=== PATIENT | male | born 1960 | race Caucasian/White ===

== ENCOUNTER 2018-07-05 16:07 | Emergency (ER) | payer OTHER, SELFPAY ==
[2018-07-05 16:09] VITALS: BP 125/74; PULSE 103; RESP 19; TEMP 36.8; O2SAT 97; BMI 27.0
--- NOTE | 2018-07-05 16:22 | ED.VISSUMM ---
- ER Visit Summary Date of Service: 07/05/18 Chief Complaint: Right leg pain History of Present Illness: The patient is a 58 M presenting with right leg pain. Patient states this started yesterday. He noticed pain and redness to the medial aspect of his right thigh. He was concerned about possibility of blood clot. He called his pocket operator and was advised him to come to the ED. He states he has right lower rib pain. He states this has been persistent for the past 2 years after having pneumonia. He states this is no different than usual. He denies shortness of breath or chest pain. He denies injury. Denies fever. Denies other complaints. Physical Examination: Vitals are stable. Patient is afebrile. Alert no acute distress. HEENT exam is unremarkable. Neck is supple. Lungs are clear and equal bilaterally. Chest wall is nontender Heart is regular rate and rhythm. Abdomen is soft nontender nondistended. No guarding or rebound Extremities right medial thigh tenderness, active full range of motion. Normal distal pulses Skin is warm and dry. No focal neurologic deficit. Remainder of exam is unremarkable. Emergency Department Course and Treatment: Right rib series shows COPD, no acute process. CBC, chemistries unremarkable. Liver lipase are normal. Ultrasound right lower extremity shows superficial thrombophlebitis with no evidence of DVT. Patient is advised to follow-up with primary care physician. Advised return to ED for any worsening complaints. Disposition: Discharge home Impression: Right lower extremity superficial thrombophlebitis; chronic right rib pain This note was generated with [employer] dictation software. It may contain incorrect words, spelling, and punctuation that were not noted in review of the chart prior to signing ED Disposition - Plan for ED Patient: Chief Complaint: Lower Extremity Injury Instructions: ED Phlebitis Superficial Referrals: Naresh Gamino MD [Primary Care Provider] -
--- NOTE | 2018-07-05 16:25 | ED.DCSUM_ITS ---
- ER Visit Summary Date of Service: 07/05/18 Chief Complaint: Right leg pain History of Present Illness: The patient is a 58 M presenting with right leg pain. Patient states this started yesterday. He noticed pain and redness to the medial aspect of his right thigh. He was concerned about possibility of blood clot. He called his toe puncher and was advised him to come to the ED. He states he has right lower rib pain. He states this has been persistent for the past 2 years after having pneumonia. He states this is no different than usual. He denies shortness of breath or chest pain. He denies injury. Denies fever. Denies other complaints. Physical Examination: Vitals are stable. Patient is afebrile. Alert no acute distress. HEENT exam is unremarkable. Neck is supple. Lungs are clear and equal bilaterally. Chest wall is nontender Heart is regular rate and rhythm. Abdomen is soft nontender nondistended. No guarding or rebound Extremities right medial thigh tenderness, active full range of motion. Normal distal pulses Skin is warm and dry. No focal neurologic deficit. Remainder of exam is unremarkable. Emergency Department Course and Treatment: Right rib series shows COPD, no acute process. CBC, chemistries unremarkable. Liver lipase are normal. Ultrasound right lower extremity shows superficial thrombophlebitis with no evidence of DVT. Patient is advised to follow-up with primary care physician. Advised return to ED for any worsening complaints. Disposition: Discharge home Impression: Right lower extremity superficial thrombophlebitis; chronic right rib pain This note was generated with [employer] dictation software. It may contain incorrect words, spelling, and punctuation that were not noted in review of the chart prior to signing ED Disposition - Plan for ED Patient: Chief Complaint: Lower Extremity Injury Instructions: ED Phlebitis Superficial Referrals: Naresh Gamino MD [Primary Care Provider] -
--- NOTE | 2018-07-05 16:40 | RAD_ITS ---
STUDY: X-RAY - UNILATERAL RIBS ( RIGHT ) WITH CHEST REASON FOR EXAM: Male, 58 years old. Right-sided chest pain. TECHNIQUE - RIBS: 4 view(s) of the ribs. TECHNIQUE - CHEST: Single frontal view of the chest. COMPARISON: 01/13/2016. FINDINGS - RIBS: Normal visualized ribs without a demonstrated fracture. FINDINGS - CHEST: The lungs are hyperexpanded. There are coarsened interstitial markings suggestive of mild chronic fibrosis. No gross focal infiltrates. No gross effusions. Normal size heart. Normal mediastinum and kavita. There is prominence of the pulmonary hilar arteries without peripheral pulmonary vascular congestion, suggesting pulmonary hypertension. Normal visualized aortic arch and descending thoracic aorta. Normal visualized thoracic spine. Normal visualized ribs, clavicles, and shoulders. There is no demonstrated abnormality of the visualized soft tissue structures of the upper abdomen. RAD/Ribs Uni Min 3V w/PA Chest IMPRESSION: RIBS: Normal x-ray examination of the ribs. CHEST: No acute chest disease. There are findings consistent with COPD. There is no evidence of acute chest disease. Electronically Signed: Gurvinder Dumont MD at 17:02 EST , Service support ,
[2018-07-05 16:53] LABS: Absolute Lymphocyte Count 2.78 X10^3/ul (0.83-4.51); Absolute Neutrophil Count 4.8 X10^3/uL (2.0-7.7); Basophil# 0.04 X10^3/uL; Basophil% 0.5 % (0-1); Eosinophil# 0.21 X10^3/uL; Eosinophils% 2.4 % (0-5); Hematocrit 46.2 % (40-54); Lymphocyte # 2.78 X10^3/ul (4.0); Lymphocyte % 32.2 % (19-41); Mean Corp Hgb Conc 32.5 g/gl (32-36); Mean Corpuscular Hgb 30.4 pg (27.0-32.0); Mean Corpuscular Volume 93.7 fL (80-94); Monocyte# 0.77 X10^3/uL; Monocyte% 8.9 % (0-10); Neutrophil # 4.83 X10^3/uL (2.7-7.7); Platelet Count 213 K/mm3 (150-450); RBC Distribution Width CV 14.1 % (11.6-14.6); RBC Distribution Width SD 48.1 fl (35.1-43.9); Red Blood Count 4.93 M/mm3 (4.6-6.2); White Blood Count 8.6 K/mm3 (4.4-11.0)
[2018-07-05 17:00] LABS: ALB/GLOB Ratio 0.9 RATIO (0.9-2.4); AST(SGOT) 9 U/L (15-37); Alanine Aminotransfer ALT/SGPT 13 U/L (16-61); Albumin, Serum 3.4 g/dL (3.2-5.0); Alkaline Phosphatase 85 U/L (45-117); Anion Gap 6 (5-15); BUN 18 mg/dL (7-18); BUN/Creat Ratio 15.9 RATIO (10-20); Calcium,Total 8.4 mg/dL (8.5-10.1); Chloride 112 mmol/L (98-107); Creatinine, Serum 1.13 mg/dL (0.70-1.30); EST Glomerular Filtration Rate 71 mL/min (>60); Est Glom Filt Rate - Afr Amer 85 mL/min (>60); Estimated Creatinine Clearance 74.97 ml/min; Globulin 3.8 g/dL (2.2-4.2); Glucose 78 mg/dL (74-106); Lipase 261 U/L (73-393); Protein, Total 7.2 g/dL (6.4-8.2); Sodium Level 145 mmol/L (136-145)
[2018-07-05 17:01] LABS: POSITIVE COUNT NO; POSITIVE DIFFERENTIAL NO; POSITIVE MORPHOLOGY NO
--- NOTE | 2018-07-05 17:13 | US_ITS ---
STUDY: VENOUS DOPPLER ULTRASOUND - RIGHT LOWER EXTREMITY REASON FOR EXAM: Male, 58 years old. Medial distal thigh area of redness and pain TECHNIQUE: Ultrasound evaluation of the deep vein system to include rosa-scale imaging and compression was performed. Rosa-scale imaging and Doppler sonographic evaluation, including duplex spectral analysis and qualitative color flow sonography, was performed. COMPARISON: None. FINDINGS: Common Femoral Vein: Normal compression, spontaneity and augmentation. Normal color Doppler. Femoral Proximal: Normal compression, Normal color Doppler. Femoral Middle: Normal compression, spontaneity and augmentation. Normal color Doppler. Femoral Distal: Normal compression. Normal color Doppler. Popliteal Vein: Normal compression, Normal color Doppler. Posterior Tibial Vein: Normal compression, Normal color Doppler. Peroneal Vein: Normal compression, Normal color Doppler. In the region of interest there is no visualized focal thrombosis of superficial varicosities or varicose veins. US/Venous Duplex Imag/Limited/Uni IMPRESSION: Normal venous Doppler ultrasound of the lower extremity. In the region of concern, Thrombosis of superficial varicosities given history of redness swelling consider thrombophlebitis. Electronically Signed: Fátima Cevallos MD at 18:37 EST Tel , Service support ,
--- NOTE | 2018-07-05 17:38 | ED.DEP ---
ED Disposition - Plan for ED Patient: Chief Complaint: Lower Extremity Injury Instructions: ED Phlebitis Superficial Referrals: Naresh Gamino MD [Primary Care Provider] -
[2018-07-05 17:52] VITALS: BP 124/67; PULSE 71; RESP 15; O2SAT 98
== END 2018-07-05 17:54 | disposition home or self-care (01) ==
LOC: ED 17:20
PROVIDERS: Emergency Provider Emergency Medicine; Family Provider Family Medicine; PCP Family Medicine
DX: I80.01 Phlebitis and thrombophlebitis of superficial vessels of right lower extremity (principal); R07.81 Pleurodynia; J44.9 Chronic obstructive pulmonary disease, unspecified; I50.9 Heart failure, unspecified; Z72.0 Tobacco use
CPT/HCPCS: 71101; 80053; 83690; 85025; 93971; 99283

== ENCOUNTER 2021-09-27 05:49 | Emergency (ER) | payer OTHER, MEDICAID, SELFPAY ==
[2021-09-27] VITALS (8 sets, daily range): BP systolic 96–107; BP diastolic 65–81; PULSE 89–99; RESP 13–26; TEMP 36.5; O2SAT 94–98; BMI 25.7
--- NOTE | 2021-09-27 05:55 | RAD_ITS ---
EXAM: XR CHEST, 1 VIEW CLINICAL INDICATION: chest pain chest pain TECHNIQUE: Frontal view of the chest. This report was created using [employer] report generation technology. COMPARISON: 07/05/2018. FINDINGS: LUNGS AND PLEURAL SPACES: There is increased interstitial prominence in the lungs, which may represent CHF. There is mild left basilar atelectasis. There is no demonstrated focal pulmonary infiltrate. No pneumothorax. No effusion. HEART: The heart is enlarged. MEDIASTINUM: Central airways and mediastinal contour are unremarkable. BONES/JOINTS: There are multilevel degenerative changes in the thoracic spine. SOFT TISSUES: Unremarkable. RAD/Chest 1 View (Portable) IMPRESSION: Cardiomegaly with suggestion of mild CHF. Electronically Signed: Sergio Bowie MD at 6:37 EST Reading Location ID and State: [facility] / [place] , Service support ,
--- NOTE | 2021-09-27 05:55 | EKG12_ITS ---
Test Reason : SOB Blood Pressure : / mmHG Vent. Rate : 091 BPM Atrial Rate : 091 BPM P-R Int : 134 ms QRS Dur : 160 ms QT Int : 436 ms P-R-T Axes : 071 045 108 degrees QTc Int : 536 ms Normal sinus rhythm Left bundle branch block Abnormal ECG Confirmed by NILSA IBARRA, MIGUEL ([id number]), editor farm journal BOB LANDEROS ([id number]) on 09/29/2021 1:29:05 PM Referred By: ELVIA Confirmed By:MIGUEL ASH MD
[2021-09-27] MEDS: Aspirin 81 MG TAB.CHEW 324 MG PO (06:01)
[2021-09-27 06:05] LABS: Absolute Lymphocyte Count 2.98 X10^3/uL (0.83-4.51); Absolute Neutrophil Count 5.3 X10^3/uL (2.0-7.7); Basophil# 0.07 X10^3/uL; Basophil% 0.8 % (0-1); Eosinophil# 0.25 X10^3/uL; Eosinophils% 2.7 % (0-5); Hematocrit 47.3 % (40-54); Hemoglobin 15.8 g/dL (13.0-16.5); Lymphocyte # 2.98 X10^3/ul (0.83-4.51); Lymphocyte % 32.3 % (19-41); Mean Corp Hgb Conc 33.4 g/dL (32-36); Mean Corpuscular Hgb 31.4 pg (27.0-32.0); Mean Platelet Vol. 9.5 fl (6.2-12.0); Monocyte# 0.65 X10^3/uL; NRBC Flagged by Analyzer 0 % (0-5); Neutrophil # 5.25 X10^3/uL (2.7-7.7); Neutrophil % 56.9 % (47-70); Platelet Count 245 K/mm3 (150-450); RBC Distribution Width SD 48.5 fl (35.1-43.9); Red Blood Count 5.03 M/mm3 (4.6-6.2); White Blood Count 9.2 K/mm3 (4.4-11.0)
--- NOTE | 2021-09-27 06:20 | ED.VIS.DYS ---
HPI History of Present Illness Chief Complaint: Shortness of Breath Narrative Narrative: 61-year-old male with history of COPD, CAD, PAD, tobacco abuse presenting with shortness of breath. He states it woke him up from sleep and he felt like his chest was tight and he could not catch his breath. Patient walked into the kitchen and then called for his . Patient transported by EMS and did not receive any breathing treatments or steroids. He states he did not have any chest pain but he does describe a tightness across his chest which lasted for multiple minutes today. He states he started to panic and to get sweaty because he felt like he could not breathe. He states he does have a history of anxiety and he was getting concerned that he was unable to catch his breath. He states he had a similar episode of this about a week ago which lasted about 25 minutes. Has not had a fever, chills. He has been eating and drinking normally. Is making normal urine and stool. [facility] Medical History Atherosclerotic heart disease of [place] coronary artery without angina pectoris Cardiomyopathy Congestive heart failure with LV diastolic dysfunction, NYHA class 1 COPD (chronic obstructive pulmonary disease) Hypersomnia PAD (peripheral artery disease) Panic attack Pneumonia Pulmonary HTN Scoliosis Tobacco abuse Wheezing Home Medications sertraline 200 mg PO DAILY 01/13/16 [History Last Taken Unknown] albuterol sulfate [Ventolin HFA] 1 - 2 puff INHALATION Q4H PRN PRN #8.5 g 09/27/21 [Rx Last Taken Unknown] prednisone 50 mg PO DAILY #5 tab 09/27/21 [Rx Last Taken Unknown] Allergy/AdvReac Type Severity Reaction Status Date / Time No Known Allergies Allergy Verified 09/27/21 05:50 Family History Father Emphysema of lung Mother Heart disease Myocardial infarction Social History Smoking Status: Current every day smoker tobacco type: cigarettes ROS ROS ED Constitutional Constitutional ED: Reports sweats; Denies chills or fever(s) Eyes Eyes: Denies blurry vision or diplopia ENT ENT ED: Denies rhinorrhea or sore throat Cardiovascular Cardiovascular: Reports racing heartbeat; Denies chest pain Respiratory/Chest Respiratory/Chest: Reports cough and dyspnea Gastrointestinal Gastrointestinal: Denies abdominal pain, nausea or vomiting Genitourinary Genitourinary ED: Denies dysuria or hematuria Musculoskeletal Musculoskeletal: Denies arthralgias or myalgias Neurologic Neurologic: Denies headache(s) or weakness Psychiatric Psychiatric: Reports anxiety; Denies depression EXAM Physical Exam Const Vital Signs: 09/27/21 05:51 09/27/21 05:56 09/27/21 05:57 Temperature 97.7 F L Temperature Source Oral Pulse Rate 99 Respiratory Rate 26 H Respiratory Effort Short of Breath Respiratory Depth Normal Respiratory Pattern Tachypnea Blood Pressure 104/77 Blood Pressure Mean 86 Pulse Ox 98 98 Oxygen Delivery Method Room Air Room Air Room Air Oxygen Flow Rate (L/min) 09/27/21 06:25 09/27/21 07:06 09/27/21 07:52 Temperature Temperature Source Pulse Rate 94 89 Respiratory Rate 13 19 H Respiratory Effort Respiratory Depth Respiratory Pattern Normal Blood Pressure 96/65 Blood Pressure Mean 75 Pulse Ox 97 Oxygen Delivery Method Nasal Cannula Oxygen Flow Rate (L/min) 4 Positive well nourished General Appearance ED: NAD; Negative for pallor HEENT Reports dry mucous membranes atraumatic Mouth ED: Yes dry mucous membranes Mouth: dry mucous membranes Eyes PERRL and EOMs intact bilaterally Resp Auscultation: wheezes expiratory wheezes Cardio regular rate and regular rhythm Neuro oriented x3 and CN's II-XII intact bilaterally Sensorium / Orientation: alert Motor Exam: strength 5/5 throughout Skin General Skin Exam: Negative for jaundice or pallor Lesions: no lesions Rashes: no rashes MDM MDM MDM Narrative Medical decision making narrative: 61-year-old male with CAD, cardiomyopathy, pulmonary hypertension, CHF presenting with tightness across his chest and diaphoresis which is happened twice in the last week. He describes the first episode as lasting about 20 to 25 minutes. He states he woke up and became diaphoretic and could not breathe and felt tightness across his chest and could not catch his breath. This eventually resolved after about 20 to 25 minutes and he had a return of this this morning which is very similar. Patient does have a history of anxiety in the past but states he has not had to take any Ativan in a long time. He states he does not feel anxious unless he is having difficulty breathing. He also has a history of COPD and was wheezing on arrival and was given Solu-Medrol 125 mg and aerosols and he has improved. Initially he was on 4 L nasal cannula but has been able to come off of the oxygen. I personally ambulated him at the bedside for 30 seconds with a pulse ox and he maintained a pulse ox of 96% and felt okay. When he sat down his pulse ox went down to 94 and then jumped right back up to 96. His EKG shows a new left bundle branch block with a ventricular rate of 91 bpm with the last comparison being to his last EKG from December 2015. His CBC is unremarkable. Renal function and electrolytes are normal. Initial high-sensitivity troponin is 30. His chest x-ray is interpreted by myself shows cardiomegaly with a mild degree of pulmonary vascular congestion. The radiologist does agree. Patient was ordered for a Lasix. A BNP was added and is pending. Patient was ordered 40 mg of Lasix IV. Discussed with the patient at length that I felt that he should stay for cardiac evaluation especially because he has risk factors and he has been lost to follow-up. I spoke with Dr. Nickerson who came and personally talked with the patient as well and recommended admission however the patient is still declining to stay in the hospital. For this reason I will sign him out AMA. He acknowledges that he has severe injuries, disability, . This was discussed in front of his as well. She expresses her concern about him not staying. Second high-sensitivity troponin is pending. He will stay for the second troponin and if this is abnormal he will revisit whether he wants to stay or not. I did add a BNP and if this is not elevated Dr. Nickerson but does not recommend Lasix for home. If it is elevated will start him on Lasix. If his troponin does not change significantly he wishes to go home. I did write prescriptions for prednisone and albuterol inhaler in case he does get discharged home. Impression: 1. Chest pain 2. COPD exacerbation 3. CHF Lab Data Attestation: I reviewed the patient's lab results. Labs: Laboratory Results - last 24 hr 09/27/21 09/27/21 06:00 06:00 WBC 9.2 RBC 5.03 Hgb 15.8 Hct 47.3 MCV 94.0 MCH 31.4 MCHC 33.4 RDW Std Deviation 48.5 H RDW Coeff of Jefry 14.0 Plt Count 245 MPV 9.5 Immature Gran % (Auto) 0.300 Neut % (Auto) 56.9 Lymph % (Auto) 32.3 [place] % (Auto) 7.0 Eos % (Auto) 2.7 Baso % (Auto) 0.8 Absolute Neuts (auto) 5.3 Absolute Lymphs (auto) 2.98 Nucleated RBC % 0 Sodium 143 Potassium 4.1 Chloride 111 H Carbon Dioxide 28.0 Anion Gap 4 L BUN 18 Creatinine 1.15 Estim Creat Clear Calc 70.93 Est GFR (MDRD) Af Amer 83 Est GFR (MDRD) Non-Af 68 BUN/Creatinine Ratio 15.7 Glucose 101 Calcium 8.3 L Troponin I High Sens 30 Radiography Diagnostic Testing: Clinical Impression(s) from Imaging Studies Chest X-Ray 09/27/21 05:55 IMPRESSION: Cardiomegaly with suggestion of mild CHF. Electronically Signed: Sergio Bowie MD at 6:37 EST Reading Location ID and State: [facility] / [place] , Service support , Discharge Plan Triage Chief Complaint: Shortness of Breath ED Provider: [place] Dx/Rx/DC Orders Instructions: ED COPD Flare, ED Chest Pain, Uncertain Cause Prescriptions: New albuterol sulfate [Ventolin HFA] 90 mcg/actuation HFA aerosol inhaler 1 - 2 puff inhalation Q4H PRN PRN (Reason: Wheezing) Qty: 8.5 RF: 0 prednisone 50 mg tablet 50 mg PO DAILY Qty: 5 RF: 0 No Action sertraline 100 MG tablet 200 mg PO DAILY RF: 0 Primary Care Provider: Naresh Gamino Referrals: Naresh Gamino MD [Primary Care Provider] - Rico Nickerson MD [STAFF PHYSICIAN] - As soon as possible Tommie Melendrez DO [STAFF PHYSICIAN] - As soon as possible Disposition Disposition: Against Medical Advice
[2021-09-27] MEDS: Ipratropium/Albuterol Sulfate 3 ML AMPUL.NEB INHALATION (06:21)
[2021-09-27] MEDS: Albuterol 2.5 MG/3 ML VIAL.NEB. INHALATION (06:21)
[2021-09-27 06:28] LABS: Anion Gap 4 (5-15); BUN 18 mg/dL (7-18); BUN/Creat Ratio 15.7 RATIO (10-20); Calcium,Total 8.3 mg/dL (8.5-10.1); Chloride 111 mmol/L (98-107); Creatinine, Serum 1.15 mg/dL (0.70-1.30); EST Glomerular Filtration Rate 68 mL/min (>60); Est Glom Filt Rate - Afr Amer 83 mL/min (>60); Estimated Creatinine Clearance 70.93 ml/min; Glucose 101 mg/dL (74-106); Potassium 4.1 mmol/L (3.5-5.1); Sodium Level 143 mmol/L (136-145); Troponin-I HS 30 pg/mL (3.0-78.0)
[2021-09-27] MEDS: 0.9% Normal Saline 1,000 ML 999 ML IV (06:35)
[2021-09-27] MEDS: MethylPREDNISolone 125 MG/2 ML Vial IV (06:35)
[2021-09-27] MEDS: Furosemide 40 MG/4 ML Vial IV (07:50)
--- NOTE | 2021-09-27 07:54 | ED.RN ---
pt refusing to be admitted.
[2021-09-27 08:18] LABS: BNP,B-Type NATRIURETIC PEPTIDE 519.2 pg/mL (0-100)
[2021-09-27 09:47] LABS: Troponin-I HS 34 pg/mL (3.0-78.0)
== END 2021-09-27 10:50 | disposition left against medical advice (07) ==
PROVIDERS: Emergency Provider Student in an Organized Health Care Education/Training Program; PCP Family Medicine; Visit Provider Student in an Organized Health Care Education/Training Program
DX: R07.9 Chest pain, unspecified (principal); J44.1 Chronic obstructive pulmonary disease with (acute) exacerbation; I50.32 Chronic diastolic (congestive) heart failure; F41.9 Anxiety disorder, unspecified; I25.10 Atherosclerotic heart disease of native coronary artery without angina pectoris; F17.210 Nicotine dependence, cigarettes, uncomplicated; Z79.899 Other long term (current) drug therapy
CPT/HCPCS: 71045; 80048; 83880; 84484; 85025; 87426; 93005; 94640; 96374; 96375; 99285; J1940

== ENCOUNTER → 2021-11-21 | Outpatient (CLI) | payer OTHER, MEDICAID, SELFPAY ==
--- NOTE | 2021-11-21 12:48 | PFTCOMP ---
COMPLETE PULMONARY FUNCTION TEST INTERPRETATION Brief HPI: Patient is a 61 year old male, currently under the care of myself, who presents to [facility] for complete pulmonary function tests secondary to diagnosis of COPD. Respiratory therapist reports good effort and reproducible results. Interpretation: Forced expiration spirometry shows a severe large airways obstructive ventilatory defect with an FEV1 of 43% predicted. There is no significant bronchodilator response by strict ATS criteria. Spirograms are of good quality and plateau slowly, indicating slowly emptying areas of the lungs. The respiratory flow volume loop shows decreased expiratory flow rates at all lung volumes consistent with airway obstruction. Lung volumes by body plethysmography show an elevated total lung capacity at 7.96 L, 116% predicted. FRC and RV are elevated out of proportion. Lung volume measurements are consistent with hyperinflation and air-trapping. Diffusion capacity by carbon monoxide is decreased at 51% predicted. The airway resistance is elevated. Compared to previous pulmonary function tests from 04/04/2016, there is been a significant decrease in FEV1 and DLCO by 14% and 21% respectively. Impression: Irreversible severe large airways obstructive ventilatory defect with a symmetric reduction diffusion capacity, resulting in air trapping with hyperinflation and a significant worsening compared to 2016.
== END | disposition home or self-care (01) ==
LOC: PSN 10:33
PROVIDERS: PCP Family Medicine; Referring Provider Internal Medicine Critical Care Medicine; Visit Provider Internal Medicine Critical Care Medicine
DX: J44.1 Chronic obstructive pulmonary disease with (acute) exacerbation (principal); Z72.0 Tobacco use
CPT/HCPCS: 94060; 94726; 94729

== ENCOUNTER → 2021-11-24 | Outpatient (CLI) | payer OTHER, MEDICAID, SELFPAY ==
[2021-11-24 13:17] VITALS: PULSE 101; PULSE 103; PULSE 106; PULSE 111; PULSE 82; PULSE 96; PULSE 97; O2SAT 94; O2SAT 95; O2SAT 96
--- NOTE | 2021-11-25 05:42 | PCM.PSN.6M ---
PSN 6 Minute Walk Test 6 Minute Walk Test 6 Minute Walk Test: 6 Minute Walk Test PSN:6-Minute Walk Test Start: 11/24/21 13:17 Freq: Status: Active Protocol: RESP.6MINW Document 11/24/21 13:17 [facility] (Rec: 11/24/21 13:20 [facility] [id number]) 6 Minute Walk Test Date Performed 11/24/21 Time Performed 13:00 Height 5 ft 11 in Weight: 89.358 kg Weight in Pounds 197.[address]: Dr Asher Assistive device used: None Pre-test Oxygen Delivery Method Bi-pap Pulse Rate (60-100 beats/min) 82 Dyspnea Purvi Scale (0-10) 0 Exertion Purvi Scale (6-20) 6 1st minute Oxygen Delivery Method Nasal Cannula Pulse Rate (60-100 beats/min) 96 Dyspnea Purvi Scale (0-10) 98 2nd minute Oxygen Delivery Method Room Air Pulse Ox (%) 96 Pulse Rate (60-100 beats/min) 97 3rd minute Oxygen Delivery Method Room Air Pulse Ox (%) 95 Pulse Rate (60-100 beats/min) 101 H 4th minute Oxygen Delivery Method Room Air Pulse Ox (%) 94 Pulse Rate (60-100 beats/min) 106 H 5th minute Oxygen Delivery Method Room Air Pulse Ox (%) 95 Pulse Rate (60-100 beats/min) 111 H 6th minute Oxygen Delivery Method Room Air Pulse Ox (%) 94 Pulse Rate (60-100 beats/min) 103 H Dyspnea Purvi Scale (0-10) 0.5 Exertion Purvi Scale (6-20) 12 Post-test Oxygen Delivery Method Room Air Pulse Ox (%) 96 Pulse Rate (60-100 beats/min) 96 Full Laps Walked 21 Partial Lap, Number of Tiles Walked 0 Total Distance Walked (ft) 1239 Interpretation Interpretation: The patient was able to ambulate 1239 feet over the course of 6 minutes on room air with no assistive devices or breaks. The patient experienced no significant desaturation, but did have a peak heart rate of 111 bpm, indicating probable deconditioning. These findings are consistent with a cardiovascular limitation exercise tolerance. Recommendations Recommendations: No supplemental oxygen is indicated at this time.
== END | disposition home or self-care (01) ==
LOC: PSN 12:49
PROVIDERS: PCP Family Medicine; Referring Provider Internal Medicine Critical Care Medicine; Visit Provider Internal Medicine Critical Care Medicine
DX: J44.1 Chronic obstructive pulmonary disease with (acute) exacerbation (principal); Z72.0 Tobacco use
CPT/HCPCS: 94618

== ENCOUNTER → 2021-12-01 | Outpatient (CLI) | payer OTHER, MEDICAID, SELFPAY ==
--- NOTE | 2021-12-01 12:53 | ECHOD_ITS ---
Reason For Study: DYSPNEA/SOB Procedure This was a 2D Doppler, Color Flow transthoracic echocardiogram. Exam performed in department. Left Ventricle Normal LV size. The estimated ejection fraction is 25 %. There is severe global hypokinesis of the left ventricle. Right Ventricle Normal RV size. Normal systolic function. Atria Normal left atrium. Normal right atrium. Mitral Valve Bileaflet diffuse mitral valve thickening. Moderate (2+) eccentric mitral valve insufficiency. Tricuspid Valve Normal tricuspid valve. Mild to moderate (1-2+) tricuspid valve insufficiency. Pulmonary artery systolic pressure is 42 mmHg. Aortic Valve Normal aortic valve. Trisinus/trileaflet aortic valve. Pulmonic Valve Normal pulmonic valve. Great Vessels Normal aortic root. The pulmonary artery is normal size. Inferior vena cava collapse with sniff. Pericardium/Pleural No pericardial effusion. MMode/2D Measurements & Calculations LVIDd: 6.8 cm IVSd: 0.66 cm Ao root diam: 3.4 cm LVIDs: 6.0 cm LVPWd: 0.92 cm RVDd: 3.9 cm FS: 11.9 % LAV(MOD-bp): 72.5 ml LVAd ap4: 57.7 cm2 SV(MOD-sp4): 66.1 ml LAV(MOD-bp) Indexed: 34.5 ml/m2 LVLd ap4: 10.4 cm LAV(MOD-sp2): 68.1 ml EDV(MOD-sp4): 259.4 ml LAV(MOD-sp4): 65.6 ml EDV(sp4-el): 271.5 ml LVAs ap4: 48.2 cm2 LVLs ap4: 9.9 cm ESV(MOD-sp4): 193.3 ml ESV(sp4-el): 199.1 ml EF(MOD-sp4): 25.5 % EF(sp4-el): 26.7 % SV(sp4-el): 72.4 ml LA A4 area: 23.1 cm2 LA dimension(2D): 4.1 cm RA A4 area: 14.4 cm2 Time Measurements MV dec time: 0.14 sec Doppler Measurements & Calculations MV E max casey: 84.9 cm/sec Lat Peak E' Casey: 7.8 cm/sec Med Peak E' Casey: 6.9 cm/sec MV A max casey: 74.6 cm/sec E/E' lat: 10.9 E/E' med: 12.3 MV E/A: 1.1 Ao V2 max: 94.6 cm/sec LV V1 max: 54.7 cm/sec PA V2 max: 77.9 cm/sec Ao max P.7 mmHg LV V1 max P.2 mmHg TR max casey: 310.5 cm/sec TR max P.6 mmHg ECHO/Echo Complete Interpretation Summary Normal LV size. The estimated ejection fraction is 25 %. There is severe global hypokinesis of the left ventricle. Pulmonary artery systolic pressure is 42 mmHg. Mild to moderate (1-2+) tricuspid valve insufficiency. Compared to previous study, the left ventricular systolic function is the same. . Ordering Physician: Rico Nickerson Referring Physician: HERMINIA MAGANA Performed By: Jazzy Rodriguez RDCS
== END | disposition home or self-care (01) ==
PROVIDERS: PCP Family Medicine; Referring Provider Internal Medicine Cardiovascular Disease; Visit Provider Internal Medicine Cardiovascular Disease
DX: R06.02 Shortness of breath (principal); I42.9 Cardiomyopathy, unspecified
CPT/HCPCS: 93306

== ENCOUNTER → 2021-12-06 | Outpatient (CLI) | payer OTHER, MEDICAID, SELFPAY ==
--- NOTE | 2021-12-06 06:56 | CT_ITS ---
STUDY: LOW DOSE CT LUNG CANCER SCREENING REASON FOR EXAM: Male, 61 years old. Smoker and gt; 40 pack years. copd RADIATION DOSAGE (If Supplied By Facility): CTDIvol = ( 3.02 ) mGy, DLP = ( 106.84 ) mGycm TECHNIQUE: No contrast was administered. Low dose technique was utilized (average mAS-38 and kVp 120). 1.25 mm axial source images with a slice interval of 1.25-mm were reconstructed in lung windows. 2.5 mm axial source images with a slice interval of 2.5-mm were reconstructed in lung windows. 5.0 mm axial source images with a slice interval of 5.0-mm were reconstructed in soft tissue windows. COMPARISON: Comparison is made with prior examination dated 01/14/2016. NODULES: There is a 1.5 mm noncalcified nodule in the anterior aspect of the right upper lobe as seen on axial image #92. There is also evidence of a 1.4 mm noncalcified nodule in the posterior aspect of the right upper lobe adjacent to the right minor fissure as seen on axial image #108. There is a 4.8 mm noncalcified nodule in the posterior aspect of the superior segment of the right lower lobe as seen on axial image #117. Emphysema: Hyperinflation. Emphysematous changes worse in the upper lobes. Scarring is seen at the lung apices slightly worse on the right side. The previously seen patchy infiltrates in the right hemithorax have cleared. Linear scar in the right lower lobe. Endobronchial lesion: None Aorta: Unremarkable CORONARY ARTERIES: Coronary artery calcification Heart: Unremarkable Pulmonary artery: Unremarkable Mediastinal nodes: Small mediastinal lymph nodes. Other chest and abdominal findings: CT/Low Dose CT Lung Screening IMPRESSION: Lung-RADS category 2 - Continue annual screening with LDCT in 12 months. IMPORTANT NOTES FOR USE: ACR Lung-RADS Version 1.1 Assessment Categories Release Date: 2018 Category: Coded 0-4 bases on nodule(s) with highest degree of suspicion. Negative screen is defined as categories 1 and 2; a positive screen is defined as categories 3 and 4. Category 3 and 4A nodules that are unchanged on interval CT should be coded as category 2, and individuals returned to screening in 12 months. Category 4X: Category 3 or 4 nodules with additional imaging findings that increase the suspicion of lung cancer, such as spiculation, GGN that doubles in size in 1 year, enlarged lymph notes, etc. Category Modifiers: S (significant finding unrelated to lung cancer) Electronically Signed: Nando Garcias MD at 10:19 EDT ,
== END | disposition home or self-care (01) ==
LOC: CT 06:55
PROVIDERS: PCP Family Medicine; Referring Provider Nurse Practitioner Acute Care; Visit Provider Nurse Practitioner Acute Care
DX: F17.210 Nicotine dependence, cigarettes, uncomplicated (principal)
CPT/HCPCS: 71271

== ENCOUNTER 2022-01-27 20:54 | Emergency (ER) | payer OTHER, MEDICAID, SELFPAY ==
[2022-01-27] VITALS (13 sets, daily range): BP systolic 83–115; BP diastolic 65–92; PULSE 65–109; RESP 13–18; TEMP 36.2; O2SAT 94–98; BMI 27.4
--- NOTE | 2022-01-27 20:57 | CT_ITS ---
We are attempting to reach an attending provider to discuss findings. An addendum with communication details will be sent when the communication is complete. EXAM: CT HEAD WITHOUT INTRAVENOUS CONTRAST CLINICAL INDICATION: Neuro deficit, acute, stroke suspected TECHNIQUE: Multiple axial images were obtained of the head without intravenous contrast. This CT exam was performed using one or more of the following dose reduction techniques: automated exposure control, adjustment of the mA and/or kV according to patient size, and/or use of iterative reconstruction technique. This report was created using [employer] report [employer] technology. COMPARISON: None. FINDINGS: BRAIN AND EXTRA-AXIAL SPACES: Unremarkable. No intra- or extra-axial hemorrhage. No evidence of acute infarct. No intracranial mass or mass effect. There is preservation of the escobedo/white matter interface. Posterior fossa structures are unremarkable. Ventricles are appropriate for age. No hydrocephalus. Basal cisterns are patent. BONES/JOINTS: Unremarkable. No discrete lytic or blastic abnormalities. VASCULATURE: There are calcifications around the cavernous carotid arteries. This is consistent for atherosclerotic disease. SINUSES: Unremarkable as visualized. Clear. MASTOID AIR CELLS: Unremarkable. Clear. ORBITS: Visualized globes, extraocular muscles, optic nerves and retrobulbar fat appear unremarkable. Aspects 10 CT/STROKE Brain/Head without Cont IMPRESSION: No acute findings in the head/brain. Critical finding called and case discussed. Electronically Signed: Aristides Coyle MD at 21:11 EDT ,
--- NOTE | 2022-01-27 20:57 | CT_ITS ---
EXAM: CT ANGIOGRAPHY HEAD AND NECK WITH INTRAVENOUS CONTRAST CLINICAL INDICATION: Neuro deficit, acute, stroke suspected TECHNIQUE: [place]/head and neck CT angiography protocol performed with intravenous contrast. This CT exam was performed using one or more of the following dose reduction techniques: automated exposure control, adjustment of the mA and/or kV according to patient size, and/or use of iterative reconstruction technique. This report was created using [employer] report generation technology. MIP reconstructed images were created and reviewed. CONTRAST: IV 100mL [id number]-370 RADIATION DOSE: CTDIvol = 22.81 mGy, DLP = 920.13 mGy-cm COMPARISON: None. FINDINGS: HEAD: RIGHT ANTERIOR CEREBRAL ARTERY: Unremarkable. No significant stenosis at the visualized segments. Anterior communicating artery is present. No aneurysm. RIGHT MIDDLE CEREBRAL ARTERY: Unremarkable. No significant stenosis at the visualized segments. No aneurysm. RIGHT POSTERIOR CEREBRAL ARTERY: See below. RIGHT INTRACRANIAL INTERNAL CAROTID ARTERY: Unremarkable. No significant stenosis. No dissection or occlusion. RIGHT INTRACRANIAL VERTEBRAL ARTERY: Unremarkable. No significant stenosis. No dissection or occlusion. LEFT ANTERIOR CEREBRAL ARTERY: Unremarkable. No significant stenosis at the visualized segments. No aneurysm. LEFT MIDDLE CEREBRAL ARTERY: Unremarkable. No significant stenosis at the visualized segments. No aneurysm. LEFT POSTERIOR CEREBRAL ARTERY: Unremarkable. No occlusion or significant stenosis. No aneurysm. LEFT INTRACRANIAL INTERNAL CAROTID ARTERY: See below. LEFT INTRACRANIAL VERTEBRAL ARTERY: Unremarkable. No significant stenosis. No dissection or occlusion. BASILAR ARTERY: There is a thrombus visualized in the basilar artery. The thrombus extends into the right P1 segment causing severe stenosis. No aneurysm. OTHER VASCULATURE: There is mild atherosclerotic plaque formation of the origin of the left internal carotid artery with less than 50% cross sectional diameter stenosis. ALL ABOVE CRITERIA BY NASCET. There is calcified plaque formation of the right cavernous carotid artery, with a mild stenosis (less than 50%). ALL ABOVE CRITERIA BY NASCET. NECK: RIGHT COMMON CAROTID ARTERY: Unremarkable. No significant stenosis. No dissection or occlusion. RIGHT EXTRACRANIAL INTERNAL CAROTID ARTERY: Unremarkable. No significant stenosis. No dissection or occlusion. RIGHT EXTERNAL CAROTID ARTERY: Unremarkable. No occlusion. RIGHT EXTRACRANIAL VERTEBRAL ARTERY: Unremarkable. No significant stenosis. No dissection or occlusion. LEFT COMMON CAROTID ARTERY: Unremarkable. No significant stenosis. No dissection or occlusion. LEFT EXTRACRANIAL INTERNAL CAROTID ARTERY: See above. LEFT EXTERNAL CAROTID ARTERY: Unremarkable. No occlusion. LEFT EXTRACRANIAL VERTEBRAL ARTERY: Unremarkable. No significant stenosis. No dissection or occlusion. GREAT VESSELS OF AORTIC ARCH: There is calcified plaque formation of the left cavernous carotid artery, with a mild stenosis (less than 50%). ALL ABOVE CRITERIA BY NASCET. LUNG APICES: Unremarkable as visualized. HEAD and NECK: BONES/JOINTS: There are degenerative findings of the cervical spine. No discrete lytic or blastic abnormalities. SOFT TISSUES: Unremarkable. CAROTID STENOSIS REFERENCE USING NASCET CRITERIA: % ICA stenosis = (1 - narrowest ICA diameter/diameter of distal cervical ICA) x 100. Mild - <50% stenosis. Moderate - 50-69% stenosis. Severe - 70-94% stenosis. Near occlusion - 95-99% stenosis. Occluded - 100% stenosis. CT/STROKE CTA Head AND Neck W/Con IMPRESSION: 1. There is mild atherosclerotic plaque formation of the origin of the left internal carotid artery with less than 50% cross sectional diameter stenosis. ALL ABOVE CRITERIA BY NASCET. 2. There is calcified plaque formation of the right cavernous carotid artery, with a mild stenosis (less than 50%). ALL ABOVE CRITERIA BY NASCET. 3. There is calcified plaque formation of the left cavernous carotid artery, with a mild stenosis (less than 50%). ALL ABOVE CRITERIA BY NASCET. cf called N.B. : The above Results were Read Back by Aristides Coyle MD to MD susan, and understanding confirmed on 01/27/2022 21:22:58 (ET). Electronically Signed: Aristides Coyle MD at 21:23 EDT ,
--- NOTE | 2022-01-27 20:57 | EKG12_ITS ---
Test Reason : NEURO Blood Pressure : / mmHG Vent. Rate : 100 BPM Atrial Rate : 100 BPM P-R Int : 162 ms QRS Dur : 156 ms QT Int : 424 ms P-R-T Axes : 069 010 096 degrees QTc Int : 546 ms Normal sinus rhythm Left bundle branch block Abnormal ECG Confirmed by JEFF IBARRA, BRANDON ([id number]), purchase request editor BOB LANDEROS ([id number]) on 01/31/2022 10:04:56 AM Referred By: ASHLEY Confirmed By:BRANDON AGUILAR MD
[2022-01-27 21:20] LABS: Absolute Lymphocyte Count 3.76 X10^3/uL (0.83-4.51); Absolute Neutrophil Count 4.8 X10^3/uL (2.0-7.7); Basophil# 0.06 X10^3/uL; Basophil% 0.6 % (0-1); Eosinophil# 0.17 X10^3/uL; Eosinophils% 1.8 % (0-5); Hematocrit 40.3 % (40-54); Hemoglobin 13.4 g/dL (13.0-16.5); Lymphocyte # 3.76 X10^3/ul (0.83-4.51); Lymphocyte % 39.1 % (19-41); Mean Corp Hgb Conc 33.3 g/dL (32-36); Mean Corpuscular Hgb 30.3 pg (27.0-32.0); Mean Corpuscular Volume 91.2 fL (80-94); Mean Platelet Vol. 9.4 fl (6.2-12.0); Monocyte# 0.84 X10^3/uL; Monocyte% 8.7 % (0-10); NRBC Flagged by Analyzer 0 % (0-5); Neutrophil # 4.76 X10^3/uL (2.7-7.7); Neutrophil % 49.5 % (47-70); Platelet Count 218 K/mm3 (150-450); RBC Distribution Width CV 14.1 % (11.6-14.6); RBC Distribution Width SD 47.5 fl (35.1-43.9); Red Blood Count 4.42 M/mm3 (4.6-6.2); White Blood Count 9.6 K/mm3 (4.4-11.0)
[2022-01-27 21:28] LABS: International Normalized Ratio 1.1
[2022-01-27 21:29] LABS: Partial Thromboplast Time 29.4 Seconds (24.1-36.2)
--- NOTE | 2022-01-27 21:31 | ED.VIS.[place] ---
HPI History of Present Illness Chief Complaint: Neuro S/Sx Informant: patient Onset/Context/Timing Onset: Today Quality and Location: Positive for Right Arm Weakness and Slurred Speech Narrative Narrative: Patient presents via EMS as a stroke alert. EMS received a call at 8:17 PM with a gentleman with right arm weakness and speech difficulties. On arrival to the emergency room his right arm weakness is improved. Patient states that he sat down to eat dinner and suddenly could not use his right arm. [facility] Medical History COPD (chronic obstructive pulmonary disease) Depression with anxiety Essential hypertension HFrEF (heart failure with reduced ejection fraction) History of alcohol abuse History of panic attacks Hyperlipidemia Hypersomnia Non-ischemic cardiomyopathy Nonobstructive atherosclerosis of coronary artery PAD (peripheral artery disease) Panic attack Pneumonia Scoliosis Secondary pulmonary arterial hypertension Tobacco abuse Wheezing Home Medications albuterol sulfate 90 mcg/actuation aerosol inhaler (Ventolin HFA) 1 - 2 puff inhalation Q4H PRN PRN Wheezing #8.5 grams 09/27/21 [Rx Last Taken Unknown] lisinopril 2.5 mg tablet 2.5 mg PO DAILY #90 tabs 10/28/21 [Rx Last Taken Unknown] furosemide 20 mg tablet (Lasix) 20 mg PO .COMPLEX #180 tabs 12/20/21 [Rx Last Taken Unknown] montelukast 10 mg tablet 10 mg PO QPM #30 tabs 12/28/21 [Rx Last Taken Unknown] tiotropium 2.5 mcg-olodaterol 2.5 mcg/actuation mist for inhalation (Stiolto Respimat) 2 inh inhalation DAILY #4 grams 12/28/21 [Rx Last Taken Unknown] dapagliflozin 10 mg tablet (Farxiga) 10 mg PO DAILY #30 tabs 12/30/21 [Rx Last Taken Unknown] carvedilol 6.25 mg tablet 6.25 mg PO BID #60 tabs 01/04/22 [Rx Last Taken Unknown] Allergy/AdvReac Type Severity Reaction Status Date / Time No Known Allergies Allergy Verified 12/28/21 08:40 Family History Father Emphysema of lung CVA (cerebral vascular accident) Mother Heart disease Myocardial infarction Surgical History History of left heart catheterization (01/17/16) Social History Smoking Status: Current every day smoker tobacco type: cigarettes Tobacco: How many years used: 40 Electronic Cigarette Use: not used second hand exposure: No alcohol intake: never substance use type: does not use ROS ROS ED Constitutional Constitutional ED: Denies chills or fever(s) Eyes Eyes: Denies change in vision or discharge from eye(s) ENT ENT ED: Denies discharge from eye(s), rhinorrhea or sore throat Cardiovascular Cardiovascular: Denies chest pain or palpitations Respiratory/Chest Respiratory/Chest: Denies cough or dyspnea Gastrointestinal Gastrointestinal: Denies abdominal pain, diarrhea, nausea or vomiting Genitourinary Genitourinary ED: Denies difficulty urinating or dysuria Musculoskeletal Musculoskeletal: Denies back pain or extremity pain Integumentary Denies Abrasions or rash Neurologic Neurologic: Reports weakness and other Details: Difficulty speaking ; Denies headache(s) Psychiatric Psychiatric: Denies anxiety or depression Endocrine Endocrinology: Denies polydipsia or polyuria Allergic/Immunologic Allergic/Immunologic ED: Denies lip swelling or urticaria EXAM Physical Exam Const Vital Signs: 01/27/22 20:55 01/27/22 21:08 01/27/22 21:10 Temperature 97.2 F L Temperature Source Temporal Pulse Rate 69 109 H Respiratory Rate 18 15 Blood Pressure 108/79 107/77 Blood Pressure Mean 88 87 Blood Pressure Source Pulse Ox 98 98 Oxygen Delivery Method Room Air Room Air Room Air 01/27/22 21:30 01/27/22 22:00 01/27/22 22:38 Temperature Temperature Source Pulse Rate 100 65 Respiratory Rate 13 16 Blood Pressure 103/92 H 107/82 H 92/68 Blood Pressure Mean 95 90 Blood Pressure Source Pulse Ox 96 98 Oxygen Delivery Method Room Air 01/27/22 22:30 01/27/22 22:13 01/27/22 22:28 Temperature Temperature Source Pulse Rate 104 H 100 Respiratory Rate 16 16 Blood Pressure 109/82 H 115/89 H 92/68 Blood Pressure Mean 91 97 76 Blood Pressure Source Monitor Monitor Pulse Ox 95 94 Oxygen Delivery Method 01/27/22 22:43 01/27/22 22:58 01/27/22 23:14 Temperature Temperature Source Pulse Rate 94 Respiratory Rate 18 16 Blood Pressure 83/65 L 99/76 99/77 Blood Pressure Mean 71 83 84 Blood Pressure Source Monitor Pulse Ox 94 95 95 Oxygen Delivery Method Room Air Room Air Room Air Positive well nourished and well developed General Appearance ED: well developed HEENT Reports moist mucous membranes Eyes PERRL and EOMs intact bilaterally Chest Wall inspection of chest normal and palpation of chest normal Resp normal respiratory effort and clear to auscultation bilaterally Cardio Rate: regular rate Rhythm: regular rhythm GI normal to inspection, nondistended, normoactive bowel sounds, soft to palpation and non-tender Neuro oriented x3 Psych mental status grossly normal STROKE Vital Signs/Narrative: Vital Signs Temp Pulse Resp BP Pulse Ox O2 Del Method 01/27/22 23:14 94 16 99/77 95 Room Air 01/27/22 22:58 99/76 95 Room Air 01/27/22 22:43 18 83/65 L 94 Room Air 01/27/22 22:28 16 92/68 94 01/27/22 22:13 100 16 115/89 H 95 01/27/22 22:30 104 H 109/82 H 01/27/22 22:38 92/68 01/27/22 22:00 65 16 107/82 H 98 01/27/22 21:30 100 13 103/92 H 96 Room Air 01/27/22 21:10 109 H 15 107/77 98 Room Air 01/27/22 21:08 Room Air 01/27/22 20:55 97.2 F L 69 18 108/79 98 Room Air NIHSS Initial: 1a Level of Consciousness: 0 1b LOC Questions (Score 2 if aphasic/stupor): 0 1c LOC Commands (Only score 1st attempt): 0 2 Best Gaze (If aphasic, use reflexive mvmts.): 0 3 Visual: 0 4 Facial Palsy: 0 5 Motor Arm Right (UN = amputation/fusion): 0 5 Motor Arm Left: 0 6 Motor Leg Right: 0 6 Motor Leg Left: 0 7 Limb ataxia (Only + if out of proportion): 0 8 Sensory (Aphasia/stupor=0 or 1, coma=2): 0 9 Best Language: 0 10 Dysarthria (mute, coma=2, intubated=UN): 1 11 Extinction and Inattention (only scored if +): 0 Total Score: 1 MDM MDM Lab Data Lab results narrative: Patient met in the EMS bay and sent immediately to CT. Stroke work-up initiated. Labs: Laboratory Results - last 24 hr 01/27/22 01/27/22 01/27/22 21:10 21:10 21:10 WBC 9.6 RBC 4.42 L Hgb 13.4 Hct 40.3 MCV 91.2 MCH 30.3 MCHC 33.3 RDW Std Deviation 47.5 H RDW Coeff of Jefry 14.1 Plt Count 218 MPV 9.4 Immature Gran % (Auto) 0.300 Neut % (Auto) 49.5 Lymph % (Auto) 39.1 Pope % (Auto) 8.7 Eos % (Auto) 1.8 Baso % (Auto) 0.6 Absolute Neuts (auto) 4.8 Absolute Lymphs (auto) 3.76 Nucleated RBC % 0 PT 14.0 INR 1.1 APTT 29.4 Sodium 137 Potassium 3.6 Chloride 109 H Carbon Dioxide 20.0 L Anion Gap 8 BUN 28 H Creatinine 1.47 H Estim Creat Clear Calc 55.49 Est GFR (MDRD) Af Amer 62 Est GFR (MDRD) Non-Af 52 L BUN/Creatinine Ratio 19.0 Glucose 101 Calcium 7.9 L Troponin I High Sens 83 H Radiography Diagnostic Testing: Clinical Impression(s) from Imaging Studies Brain CT 01/27/22 20:57 IMPRESSION: No acute findings in the head/brain. Critical finding called and case discussed. Electronically Signed: Aristides Coyle MD at 21:11 EDT , ADDENDUM: 01/27/222118 IMPRESSION: No acute findings in the head/brain. Critical finding called and case discussed. N.B. : The above Results were Read Back by Aristides Coyle MD to MD susan, and understanding confirmed on 01/27/2022 21:12:15 (ET). Electronically Signed: Aristides Coyle MD at 21:11 EDT , Head/Neck CTA 01/27/22 20:57 IMPRESSION: 1. There is mild atherosclerotic plaque formation of the origin of the left internal carotid artery with less than 50% cross sectional diameter stenosis. ALL ABOVE CRITERIA BY NASCET. 2. There is calcified plaque formation of the right cavernous carotid artery, with a mild stenosis (less than 50%). ALL ABOVE CRITERIA BY NASCET. 3. There is calcified plaque formation of the left cavernous carotid artery, with a mild stenosis (less than 50%). ALL ABOVE CRITERIA BY NASCET. cf called N.B. : The above Results were Read Back by Aristides Coyle MD to MD susan, and understanding confirmed on 01/27/2022 21:22:58 (ET). Electronically Signed: Aristides Coyle MD at 21:23 EDT , ADDENDUM: 01/27/22 2130 IMPRESSION: 1. There is mild atherosclerotic plaque formation of the origin of the left internal carotid artery with less than 50% cross sectional diameter stenosis. ALL ABOVE CRITERIA BY NASCET. 2. There is calcified plaque formation of the right cavernous carotid artery, with a mild stenosis (less than 50%). ALL ABOVE CRITERIA BY NASCET. 3. There is calcified plaque formation of the left cavernous carotid artery, with a mild stenosis (less than 50%). ALL ABOVE CRITERIA BY NASCET. cf called N.B. : The above Results were Read Back by Aristides Coyle MD to MD susan, and understanding confirmed on 01/27/2022 21:22:58 (ET). Electronically Signed: Aristides Coyle MD at 21:23 EDT , Chest X-Ray 01/27/22 21:40 IMPRESSION: No acute findings. Minimal subsegmental atelectasis versus scarring in the lung bases. Electronically Signed: Leslie Du MD at 22:18 EDT , Brain CT 01/27/22 22:12 IMPRESSION: No evidence of hemorrhage. No definite evidence of acute infarct. Sensitivity limited by presence of IV contrast. Consider MRI for further evaluation. I discussed the findings with Dr. Doe by telephone at 7:32 PM PT. N.B. : The above Results were Read Back by Leslie Du MD to Ernestina Doe MD, and understanding confirmed on 01/27/2022 22:34:10 (ET). Electronically Signed: Leslie Du MD at 22:37 EDT , ADDENDUM: 01/27/22 2244 IMPRESSION: No evidence of hemorrhage. No definite evidence of acute infarct. Sensitivity limited by presence of IV contrast. Consider MRI for further evaluation. I discussed the findings with Dr. Doe by telephone at 7:32 PM PT. N.B. : The above Results were Read Back by Leslie Du MD to Ernestina Doe MD, and understanding confirmed on 01/27/2022 22:34:10 (ET). Electronically Signed: Leslie Du MD at 22:37 EDT , EKG Initial EKG: Attestation: I personally reviewed and interpreted this EKG as follows: Interpretation: Sinus Rhythm (Sinus at 100 with a left bundle branch block.) Treatment and Re-Evaluation Narrative: Patient was reevaluated on return to the ER room. His speech is significantly improved. At this time his NIH is 0. Neurologist from [facility] beamed in and evaluated the patient. NIH was 0 at the time of his exam. He recommended calling him back if the CTA was abnormal and if it was normal admitting for MRI and further stroke work-up. 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 This is causing severe stenosis. I spoke with the stroke neurologist again and he agreed patient should be transferred to [facility]. After speaking with the patient and at bedside patient is refusing to go to [place] stating it is too far away from home. He is in agreement with going to [place]. I currently have calls out to [facility] for transfer. Lab work is reviewed and reveals a normal CBC. Coags normal. Chemistry studies reveal a BUN of 28 and creatinine 1.47. His troponin is 83. This will be repeated in 2 hours. Addendum: I was called back into the room as the patient had developed recurrent symptoms. He had slurred speech with some slight right arm weakness. Neurology from [facility] beamed in and examined the patient again. They recommended a noncontrast head CT. If there was no evidence of bleeding patient should receive tPA. He was sent immediately to CT scan. CT revealed no evidence of bleed and tPA was initiated. At the same time I received a phone call back from [facility] where the patient wished to go for stroke care. Dr. Cornejo felt the patient could be given IV fluids to support his blood pressure as well as Plavix and aspirin. The patient had already received the tPA bolus. The drip was stopped and not given. [facility] states they will load the patient with Plavix tomorrow morning. At this time patient has IV fluids running for blood pressure support. His NIH at this time is back to 0. Critical Care Time Critical Care Time: Yes Critical care time (excluding procedures): 30-74 minutes (45) Discharge Plan Triage Chief Complaint: Neuro S/Sx ED Provider: Ernestina Doe Dx/Rx/DC Orders Clinical Impression: Brain TIA, Basilar artery thrombosis Prescriptions: No Action lisinopril 2.5 mg tablet 2.5 mg PO DAILY Qty: 90 3RF Farxiga 10 mg tablet 10 mg PO DAILY Qty: 30 6RF Stiolto Respimat 2.5-2.5 mcg/actuation mist 2 inh inhalation DAILY Qty: 4 2RF montelukast 10 mg tablet 10 mg PO QPM Qty: 30 3RF albuterol sulfate [Ventolin HFA] 90 mcg/actuation HFA aerosol inhaler 1 - 2 puff inhalation Q4H PRN PRN (Reason: Wheezing) Qty: 8.5 0RF furosemide [Lasix] 20 mg tablet 20 mg PO .COMPLEX Qty: 180 3RF Rx Instructions: 20 mg PO daily, may take two tablets daily as needed for SOB, weight gain or swelling; carvedilol 6.25 mg tablet 6.25 mg PO BID Qty: 60 11RF Rx Instructions: administer with food (meal or snack) Primary Care Provider: Naresh Gamino Referrals: Naresh Gamino MD [Primary Care Provider] - Disposition Disposition: Acute Care Hospital Discharge Location: [facility]
--- NOTE | 2022-01-27 21:40 | RAD_ITS ---
STUDY: X-RAY CHEST REASON FOR EXAM: Male, 61 years old. Neuro deficit, acute, stroke suspected TECHNIQUE: AP portable. 9:41 PM. 2 images. COMPARISON: 09/27/2021. FINDINGS: LUNGS: No consolidation. Minimal reticular opacity in the lung bases. No pneumothorax. MEDIASTINUM: Unremarkable. CARDIAC SILHOUETTE: Not enlarged. BONES AND SOFT TISSUES: No acute abnormalities. RAD/Chest 1 View IMPRESSION: No acute findings. Minimal subsegmental atelectasis versus scarring in the lung bases. Electronically Signed: Leslie Du MD at 22:18 EDT ,
[2022-01-27 21:48] LABS: Anion Gap 8 (5-15); BUN 28 mg/dL (7-18); Calcium,Total 7.9 mg/dL (8.5-10.1); Chloride 109 mmol/L (98-107); Creatinine, Serum 1.47 mg/dL (0.70-1.30); EST Glomerular Filtration Rate 52 mL/min (>60); Est Glom Filt Rate - Afr Amer 62 mL/min (>60); Estimated Creatinine Clearance 55.49 ml/min; Glucose 101 mg/dL (74-106); Potassium 3.6 mmol/L (3.5-5.1); Sodium Level 137 mmol/L (136-145); Troponin-I HS 83 pg/mL (3.0-78.0)
--- NOTE | 2022-01-27 22:12 | CT_ITS ---
STUDY: CT BRAIN WITHOUT CONTRAST REASON FOR EXAM: Male, 61 years old. cva RADIATION DOSAGE (If Supplied By Facility): CTDIvol = ( 44.99 ) mGy, DLP = ( 897.35 ) mGycm TECHNIQUE: Transaxial CT imaging of the brain was performed without administration of intravenous contrast material. Individualized dose optimization techniques were used for this CT. COMPARISON: CT head from 8:58 PM, CT angiogram 9:02 PM. FINDINGS: BRAIN: Presence of residual contrast from earlier IV contrast administration may limit detection of very small bleed, and limit sensitivity for hyperdense vessel. No acute bleed. No edema. Rosa-white matter differentiation is maintained. VENTRICLES AND SULCI: Not dilated. EXTRA-AXIAL: No hemorrhage, fluid collection, or mass. CALVARIUM / SKULL BASE: Unremarkable. FACE/SINUSES: Unremarkable. SOFT TISSUES: Unremarkable. CT/Brain/Head without Contrast IMPRESSION: No evidence of hemorrhage. No definite evidence of acute infarct. Sensitivity limited by presence of IV contrast. Consider MRI for further evaluation. I discussed the findings with Dr. Doe by telephone at 7:32 PM PT. N.B. : The above Results were Read Back by Leslie Du MD to Ernestina Doe MD, and understanding confirmed on 01/27/2022 22:34:10 (ET). Electronically Signed: Leslie Du MD at 22:37 EDT ,
--- NOTE | 2022-01-27 22:15 | ED.RN ---
[facility] Neurologist verbalized order to change LKW time to 2114.
[2022-01-27] MEDS: 0.9% Normal Saline 1,000 ML 100 ML IV (22:50)
[2022-01-27] MEDS: Ondansetron 4 MG/2 ML Vial IV (23:06)
[2022-01-27 23:56] LABS: Troponin-I HS 97 pg/mL (3.0-78.0)
--- NOTE | 2022-01-28 00:20 | ED.RN ---
Report called to Christy MARTINO at [facility]
[2022-01-28 00:40] VITALS: BP 103/80; PULSE 100
== END 2022-01-28 00:53 | disposition short-term general hospital (02) ==
PROVIDERS: Emergency Provider Emergency Medicine; PCP Family Medicine; Visit Provider Emergency Medicine
DX: I65.1 Occlusion and stenosis of basilar artery (principal); J44.9 Chronic obstructive pulmonary disease, unspecified; I11.0 Hypertensive heart disease with heart failure; I42.8 Other cardiomyopathies; I50.22 Chronic systolic (congestive) heart failure; I25.10 Atherosclerotic heart disease of native coronary artery without angina pectoris; F17.210 Nicotine dependence, cigarettes, uncomplicated; Z79.899 Other long term (current) drug therapy
CPT/HCPCS: 70450; 70496; 70498; 71045; 80048; 84484; 85025; 85610; 85730; 87811; 93005; 96374; 96375; 99285; J2997; J7030; A4216; J2405

== ENCOUNTER → 2022-02-24 | Outpatient (CLI) | payer OTHER, MEDICAID, SELFPAY ==
--- NOTE | 2022-02-24 08:02 | CT_ITS ---
STUDY: CTA OF THE BRAIN REASON FOR EXAM: Male, 61 years old. Recent CVA; ? Basilar a./R ACETYLENE TORCH OPERATOR stenosis/thrombosis -- basilar artery/right ACETYLENE TORCH OPERATOR stenosis/thrombosis RADIATION DOSAGE (If Supplied By Facility): CTDIvol = ( 27.08 ) mGy, DLP = ( 438.98 ) mGycm TECHNIQUE: CT angiography was performed with a multi-detector CT scanner. Data acquisition was obtained from the skull base through the vertex following intravenous administration of IV 100mL [id number]-370. MIP images were reconstructed from the axial data set. Post-processing of the angiographic images was performed, with multiplanar reformation and 3D reconstruction. Individualized dose optimization techniques were used for this CT. COMPARISON: None. FINDINGS: Normal bilateral petrous carotid arteries. Normal right cavernous carotid artery with a normal supraclinoid bifurcation. Normal left cavernous carotid artery with a normal supraclinoid bifurcation. Normal right A1 segments of the anterior cerebral artery. Normal left A1 segments of the anterior cerebral artery. Normal intact anterior communicating artery (ACOM). Normal bilateral A2 segments of the anterior cerebral arteries. Normal right M1 and M2 segments of the middle cerebral arteries, with a normal M1 bifurcation. Normal left M1 and M2 segments of the middle cerebral arteries, with a normal M1 bifurcation. Normal right posterior communicating artery (PCOM). Normal left posterior communicating artery (PCOM). Normal bilateral vertebral arteries. Normal basilar artery with a normal basilar bifurcation. The visualized bilateral superior cerebellar (SCA) arteries are normal. Normal bilateral P1, P2 and visualized P3 segments of the posterior cerebral arteries. There is no demonstrated aneurysm of the [place]. There is no demonstrated abnormality of the visualized brain. IMPRESSION: Normal [place] without a demonstrated aneurysm or hemodynamically significant stenosis. Electronically Signed: Nando Garcias MD at 9:08 EDT , STUDY: CT BRAIN WITHOUT CONTRAST REASON FOR EXAM: Male, 61 years old. Recent CVA; ? Basilar a./R ACETYLENE TORCH OPERATOR stenosis/thrombosis -- basilar artery/right ACETYLENE TORCH OPERATOR stenosis/thrombosis RADIATION DOSAGE (If Supplied By Facility): CTDIvol = ( 44.99 ) mGy, DLP = ( 852.35 ) mGycm TECHNIQUE: Transaxial CT imaging of the brain was performed without administration of intravenous contrast material. Individualized dose optimization techniques were used for this CT. COMPARISON: Comparison is made with prior study 01/27/2022. FINDINGS: Normal soft tissue structures. Normal calvarium. There is mild cerebral atrophy with widening of the extra-axial spaces and ventricular dilatation. Once again, there is evidence of decreased attenuation in the posterior medial aspect of the right occipital lobe in comparison ischemic infarct. Normal basal ganglia and thalami. Normal brainstem. Normal cerebellum. There is no intracranial hemorrhage. There are no findings of an acute ischemic infarction. Normal visualized paranasal sinuses. CT/CTA Head W/WO Contrast IMPRESSION: Findings in keeping with the subacute infarct involving the right posterior medial aspect of the right occipital lobe. Electronically Signed: Nando Garcias MD at 9:10 EDT ,
== END | disposition home or self-care (01) ==
LOC: CT 08:01
PROVIDERS: PCP Family Medicine; Referring Provider Psychiatry & Neurology Neurology; Visit Provider Psychiatry & Neurology Neurology
DX: I67.9 Cerebrovascular disease, unspecified (principal)
CPT/HCPCS: 70496; Q9967

== ENCOUNTER → 2022-05-03 | Outpatient (CLI) | payer OTHER, MEDICAID, SELFPAY ==
--- NOTE | 2022-05-03 09:48 | RAD_ITS ---
STUDY: X-RAY CHEST REASON FOR EXAM: Male, 62 years old. Right cough. CHF symptoms. History of COPD. TECHNIQUE: PA and lateral views of the chest. COMPARISON: 01/27/2022. FINDINGS: There is hyperinflation of the lungs consistent with chronic obstructive lung disease (COPD). No new mass or infiltrate. There is no demonstrated pleural abnormality. Normal size heart. Normal mediastinum and kavita. Normal visualized pulmonary arteries. Normal visualized aortic arch and descending thoracic aorta. There are diffuse degenerative changes of the visualized thoracic spine. There is degenerative osteoarthritis of the bilateral shoulders. There is no demonstrated abnormality of the visualized soft tissue structures of the upper abdomen. RAD/Chest PA and Lateral IMPRESSION: Probable COPD without acute cardiopulmonary disease. Electronically Signed: Julián Temple DO at 17:00 EDT ,
[2022-05-03 10:39] LABS: Hematocrit 48.8 % (40-54); Hemoglobin 16.1 g/dL (13.0-16.5); Mean Corpuscular Hgb 31.6 pg (27.0-32.0); Mean Corpuscular Volume 95.9 fL (80-94); Mean Platelet Vol. 9.8 fl (6.2-12.0); Platelet Count 251 K/mm3 (150-450); RBC Distribution Width CV 13.8 % (11.6-14.6); RBC Distribution Width SD 48.9 fl (35.1-43.9); Red Blood Count 5.09 M/mm3 (4.6-6.2); White Blood Count 8.8 K/mm3 (4.4-11.0)
[2022-05-03 11:06] LABS: BNP,B-Type NATRIURETIC PEPTIDE 304.4 pg/mL (0-100)
[2022-05-03 11:18] LABS: Anion Gap 6 (5-15); BUN 31 mg/dL (7-18); BUN/Creat Ratio 24.6 RATIO (10-20); Chloride 108 mmol/L (98-107); Creatinine, Serum 1.26 mg/dL (0.70-1.30); EST Glomerular Filtration Rate 61 mL/min (>60); Est Glom Filt Rate - Afr Amer 74 mL/min (>60); Glucose 86 mg/dL (74-106); Potassium 4.3 mmol/L (3.5-5.1); Sodium Level 139 mmol/L (136-145)
== END | disposition home or self-care (01) ==
LOC: RAD 09:47
PROVIDERS: PCP Family Medicine; Referring Provider Nurse Practitioner Family; Visit Provider Nurse Practitioner Family
DX: R14.0 Abdominal distension (gaseous) (principal); I42.8 Other cardiomyopathies; I50.20 Unspecified systolic (congestive) heart failure; R05.8 Other specified cough; N28.9 Disorder of kidney and ureter, unspecified
CPT/HCPCS: 36415; 71046; 80048; 83880; 85027

== ENCOUNTER → 2022-06-09 | Outpatient (CLI) | payer OTHER, MEDICAID, SELFPAY ==
[2022-06-09 12:46] LABS: AST(SGOT) 15 U/L (15-37); Alanine Aminotransfer ALT/SGPT 26 U/L (16-61); Alkaline Phosphatase 83 U/L (45-117); Bilirubin, Direct 0.14 mg/dL (0.00-0.30); Cholesterol 121 mg/dL (200); High Density Lipoprotein 46 mg/dL; Thyroid Stim Hormone (TSH) 1.38 uIU/mL (0.358-3.74); Triglycerides 77 mg/dL; Very Low Density Lipoprotein 15 mg/dL (5-40)
== END | disposition home or self-care (01) ==
LOC: MTLAB 09:31
PROVIDERS: Referring Provider Psychiatry & Neurology Neurology; Visit Provider Psychiatry & Neurology Neurology
DX: E78.5 Hyperlipidemia, unspecified (principal); Z86.73 Personal history of transient ischemic attack (TIA), and cerebral infarction without residual deficits
CPT/HCPCS: 36415; 80061; 80076; 84443

== ENCOUNTER 2022-08-01 05:50 | Emergency (ER) | payer OTHER, MEDICAID, SELFPAY ==
[2022-08-01 05:51] VITALS: BP 80/57; PULSE 89; RESP 18; TEMP 36.6; O2SAT 94; BMI 26.3
--- NOTE | 2022-08-01 06:05 | EKG12_ITS ---
Test Reason : SOB Blood Pressure : / mmHG Vent. Rate : 082 BPM Atrial Rate : 082 BPM P-R Int : 162 ms QRS Dur : 136 ms QT Int : 440 ms P-R-T Axes : 078 084 213 degrees QTc Int : 514 ms Normal sinus rhythm Non-specific intra-ventricular conduction block Nonspecific T wave abnormality Abnormal ECG Confirmed by JEFF IBARRA, BRANDON ([id number]), brands editor BOB LANDEROS ([id number]) on 08/02/2022 9:56:44 AM Referred By: Confirmed By:BRANDON AGUILAR MD
--- NOTE | 2022-08-01 06:05 | RAD_ITS ---
STUDY: X-RAY CHEST REASON FOR EXAM: Male, 62 years old. cough TECHNIQUE: Single AP portable view of the chest. COMPARISON: None. FINDINGS: Pacemaker seen on the left side. The lungs are clear and expanded. There is no demonstrated pleural abnormality. Normal size heart. Normal mediastinum and kavita. Normal visualized pulmonary arteries. Normal visualized aortic arch and descending thoracic aorta. Normal visualized thoracic spine. Normal visualized ribs, clavicles, and shoulders. There is no demonstrated abnormality of the visualized soft tissue structures of the upper abdomen. RAD/Chest 1 View (Portable) IMPRESSION: Normal x-ray examination of the chest. Electronically Signed: Lobo Golden MD at 6:53 EST ,
--- NOTE | 2022-08-01 06:07 | EX.ED.VIS.UR ---
HPI HPI - URI History of Present Illness Chief Complaint: Cough Detail of Chief Complaint: Cough since Sunday night. Informant: patient and spouse/S.O. Onset/Context/Timing Onset: Days Context: Gradual Onset Timing: Continuous Current Severity: Mild Maximum Severity: Mild Associated Symptoms Associated Symptoms: Positive for Myalgias, Shortness of Breath, Productive Cough and - (Green phlegm.); Negative for Nausea or Vomiting Narrative Narrative: 62-year-old male history of COPD not on oxygen, prior stroke, hypertension, peripheral arterial disease for which he is on Plavix, prior pneumonia and pacemaker placed in April. Says he quit smoking. He denies any hospitalizations since April when his pacemaker placed. Patient states Sunday night started having a cough of green phlegm had initial fevers that resolved. Denies any nausea vomiting or diarrhea. No hemoptysis. No leg swelling. Prior similar symptoms: Yes Recent Illness/Hospitalization: No ROS ROS ED ROS Narrative Cough. Short of breath. Review of Systems ROS Unobtainable: Denies due to encephalopathy Constitutional Constitutional ED: Reports fever(s); Denies chills Eyes Eyes: Denies blurry vision ENT ENT ED: Denies rhinorrhea Cardiovascular Cardiovascular: Denies chest pain or palpitations Respiratory/Chest Respiratory/Chest: Reports cough and dyspnea Gastrointestinal Gastrointestinal: Denies abdominal pain, constipation, diarrhea, melena, nausea or vomiting Genitourinary Genitourinary ED: Denies dysuria or hematuria Musculoskeletal Musculoskeletal: Denies arthralgias Integumentary Denies abscess Neurologic Neurologic: Denies headache(s) Psychiatric Psychiatric: Denies anxiety or depression Endocrine Endocrinology: Denies cold intolerance Hematologic/Lymphatic Hematologic/Lymphatic: Denies easy bleeding Allergic/Immunologic Allergic/Immunologic ED: Denies mouth swelling or tongue swelling [facility] Medical History COPD (chronic obstructive pulmonary disease) Depression with anxiety Essential hypertension HFrEF (heart failure with reduced ejection fraction) History of alcohol abuse History of CVA (cerebrovascular accident) (01/28/22) History of panic attacks Hyperlipidemia Hypersomnia Non-ischemic cardiomyopathy Nonobstructive atherosclerosis of coronary artery Occipital stroke PAD (peripheral artery disease) Panic attack Pneumonia Presence of combination internal cardiac defibrillator (ICD) and pacemaker Scoliosis Secondary pulmonary arterial hypertension Tobacco abuse Wheezing Home Medications carvedilol 6.25 mg tablet 6.25 mg PO BID #60 tabs 01/04/22 [Rx Last Taken Unknown] sertraline 100 mg tablet 100 mg PO DAILY 02/05/22 [History Last Taken Unknown] tiotropium 2.5 mcg-olodaterol 2.5 mcg/actuation mist for inhalation (Stiolto Respimat) 2 inh inhalation DAILY #4 grams 03/29/22 [Rx Last Taken Unknown] furosemide 40 mg tablet 40 mg PO .COMPLEX #180 tabs 05/04/22 [Rx Last Taken Unknown] atorvastatin 80 mg tablet 80 mg PO QHS #90 tabs 06/07/22 [Rx Last Taken Unknown] clopidogrel 75 mg tablet 75 mg PO DAILY #90 tabs 06/07/22 [Rx Last Taken Unknown] sacubitril 49 mg-valsartan 51 mg tablet (Entresto) 1 tab PO BID #60 tabs 07/06/22 [Rx Last Taken Unknown] dapagliflozin 10 mg tablet (Farxiga) 10 mg PO DAILY #30 tabs 07/27/22 [Rx Last Taken Unknown] azithromycin 250 mg tablet (Zithromax Z-Zev) 250 mg PO DAILY 4 days #4 tabs 08/01/22 [Rx Last Taken Unknown] prednisone 20 mg tablet 40 mg PO DAILY 5 days #10 tabs 08/01/22 [Rx Last Taken Unknown] Allergy/AdvReac Type Severity Reaction Status Date / Time No Known Allergies Allergy Verified 08/01/22 05:52 Family History Father Emphysema of lung CVA (cerebral vascular accident) Alcohol abuse by father Drug use Brain cancer Mother Heart disease Myocardial infarction Uncle Alcohol abuse Drug use Cancer Grandfather Prostate cancer Aunt Cancer Surgical History History of carpal tunnel surgery of right wrist (~07/30/03) History of colonoscopy (~07/30/02) History of colonoscopy (~09/14/15) History of left heart catheterization (01/17/16) Presence of biventricular implantable cardioverter-defibrillator (ICD) Social History household members: spouse Smoking Status: Former smoker Tobacco: How many years used: 40 Electronic Cigarette Use: not used second hand exposure: No alcohol intake: former substance use type: does not use caffeine: Yes Type: carbonated beverages Number of servings: 3 what type of physical activity do you participate in: walking frequency: 3-4 times per week ronnie/sikhism: Adventist seatbelt use: sometimes EXAM Physical Exam Narrative Exam Narrative: 62-year-old male. Initial blood pressure is 80/57 I rechecked it it was 74/56. Pulse ox 94% on room air no hypoxia. He is afebrile. Patient does not look septic or toxic. He is actually tolerating a pressure quite well. White states he often has low blood pressures. H EENT exam mild dry mucous membranes otherwise unremarkable. Neck nontender no lymphadenopathy. Lungs dry cough. Few scattered expiratory wheezes primarily in the left. Heart regular rhythm rate about 90 no murmur. Abdomen soft nontender. Moving all 4 extremities. Calves are nontender without edema. He has palpable radial pulse. Neurologically he is awake and alert with no focal motor deficits. Const Vital Signs: 08/01/22 05:51 08/01/22 06:15 08/01/22 06:18 Temperature 97.8 F Temperature Source Oral Pulse Rate 89 Respiratory Rate 18 Respiratory Effort Short of Breath Respiratory Depth Shallow Respiratory Pattern Tachypnea Blood Pressure 80/57 L Blood Pressure Mean 64 Pulse Ox 94 Oxygen Delivery Method Room Air Room Air Room Air 08/01/22 06:20 Temperature Temperature Source Pulse Rate 78 Respiratory Rate 15 Respiratory Effort Respiratory Depth Respiratory Pattern Blood Pressure 71/57 L Blood Pressure Mean 61 Pulse Ox 92 Oxygen Delivery Method Room Air Positive well nourished and well developed; Negative for obese, cachectic or contractures General Appearance ED: well developed and NAD; Negative for cachectic, contractures, cyanotic, diaphoretic or pallor Nutritional Appearance: Negative for cachectic or obese HEENT Reports dry mucous membranes; Denies moist mucous membranes normocephalic and atraumatic; Negative for scalp tenderness Face and Sinus: Negative for sinus tenderness Mouth ED: Yes dry mucous membranes Mouth: dry mucous membranes Teeth and Gingiva: Negative for caries Throat: posterior oropharynx normal Eyes PERRL and EOMs intact bilaterally General Eye ED: Negative for pale conjunctiva or scleral icterus Neck no lymphadenopathy, supple, no meningeal signs and no JVD General: Negative for anterior neck swelling or lymphadenopathy Resp normal respiratory effort and No clear to auscultation bilaterally Resp Narrative: Few expiratory wheezes primarily on the left. Auscultation: wheezes; Negative for rales or rhonchi Cardio S1 normal heart sound, S2 normal heart sound and no murmurs Rate: regular rate Rhythm: regular rhythm GI non-tender, non-distended and no masses Inspection: Negative for abdominal distention Palpation: soft; Negative for tender or guarding Back/Spine no CVA tenderness and normal ROM General Back: Negative for CVA tenderness Cervical Spine: Negative for cervical spine tenderness Thoracic Spine / Upper Back: Negative for thoracic spinal tenderness Lumbar Spine / Lower Back: Negative for lumbar spinal tenderness Sacrum: Negative for tenderness Extremity normal to inspection and full ROM General Extremety ED: Negative for cyanosis or tenderness General Extremity: Negative for cyanosis Neuro oriented x3 Sensorium / Orientation: alert, oriented to person, oriented to place and oriented to time; Negative for orientation impaired, lethargic, stuporous or other Motor Exam: strength 5/5 throughout; Negative for general weakness Psych mental status grossly normal Appearance: Negative for other Attitude: No agitated Mood & Affect: Negative for depressed, anxious or tearful Skin General Skin Exam: Negative for jaundice or pallor Lesions: no lesions Rashes: no rashes Trauma: Negative for abrasion or laceration MDM MDM MDM Narrative Medical decision making narrative: 62-year-old male with COPD presents with a cough that may have underlying pneumonia versus influenza versus COVID versus a viral URI. He does present hypotensive even though clinically does not look sick. He does not look septic or toxic. He may be a little dehydrated. He will undergo a septic work-up primarily for a URI. He will be treated with IV fluids times a liter. COVID and influenza be obtained along with screening labs and lactic acid. Spoke to the patient and family and they state his blood pressure often runs with a systolic in the 90s when it is taken at the doctor's office. I reviewed his old records and his last 2 echocardiograms he had an EF of around 25%. Repeat exam at 7:11 AM patient doing well. The entire time he does not look septic. He is hypotensive but he is on blood pressure medication twice a day and he has a known EF of 25%. He will be started on prednisone for his wheezing. First dose given in ER. Prednisone 40 mg a day for 5 more days. Also Zithromax Z-Zev first dose given here due to the change of his sputum. X-ray however does not show a pneumonia. He got up and ambulated and really had no lightheadedness. He is showing no signs of hypotension at this time even though his blood pressures in the 80s. I think this is chronic and he tolerates it well. His blood pressure medication will be decreased to once daily. He will follow-up with his primary care provider. Lab Data Attestation: I reviewed the patient's lab results. Lab results narrative: Chest x-ray shows chronic changes. CBC shows a white count elevated 12.6. H&H 14.8 and 45. Platelets 228. Chemistries show potassium of 3.4. Gap is 7. BUN 23 creatinine 1.4. Glucose 106. Lactic acid is normal 1.3. Liver enzymes are unremarkable. Lactic acid is normal at 1.3. Liver enzymes unremarkable. Cultures were sent. Labs: Laboratory Results - last 24 hr 08/01/22 08/01/22 08/01/22 06:12 06:12 06:12 WBC 12.6 H RBC 4.84 Hgb 14.8 Hct 45.6 MCV 94.2 H MCH 30.6 MCHC 32.5 RDW Std Deviation 46.0 H RDW Coeff of Jefry 13.2 Plt Count 228 MPV 9.8 Immature Gran % (Auto) 0.400 Neut % (Auto) 79.5 H Lymph % (Auto) 9.2 L [place] % (Auto) 9.5 Eos % (Auto) 1.1 Baso % (Auto) 0.3 Absolute Neuts (auto) 10.1 H Absolute Lymphs (auto) 1.16 Nucleated RBC % 0 Sodium 137 Potassium 3.4 L Chloride 105 Carbon Dioxide 25.0 Anion Gap 7 BUN 23 H Creatinine 1.40 H Estim Creat Clear Calc 57.52 Est GFR (MDRD) Af Amer 66 Est GFR (MDRD) Non-Af 54 L BUN/Creatinine Ratio 16.4 Glucose 106 Lactic Acid 1.3 Calcium 9.3 Total Bilirubin 0.60 AST 11 L ALT 20 Alkaline Phosphatase 71 Total Protein 7.7 Albumin 3.4 Globulin 4.3 H Albumin/Globulin Ratio 0.8 L Radiography Diagnostic Testing: Clinical Impression(s) from Imaging Studies Chest X-Ray 08/01/22 06:05 IMPRESSION: Normal x-ray examination of the chest. Electronically Signed: Lobo Golden MD at 6:53 EST , Chest x-ray, portable, single view, interpreted by myself shows chronic changes consistent with COPD. Left-sided pacemaker defibrillator. There is streakiness in both lower lungs which looks like vascularity but no obvious infiltrate or pneumonia. Rhythm Strip Rhythm Strip: Sinus Rhythm Rate: 82 Ectopy: None EKG Initial EKG: Attestation: I personally reviewed and interpreted this EKG as follows: Interpretation: Sinus Rhythm, No Acute Injury Pattern and LBBB Comments: Normal sinus rhythm rate 82. No acute signs of MT or ischemia. He does have a left bundle branch block which was seen on a prior EKG in January 2022. Prior EKG tracings: available for review Prior: Unchanged Discharge Plan Triage Chief Complaint: Cough ED Provider: Escobar Reese Dx/Rx/DC Orders Clinical Impression: COPD (chronic obstructive pulmonary disease), Wheezing, Bronchitis, Acute exacerbation of chronic obstructive pulmonary disease, Chronic hypotension Instructions: ED Bronchitis with Wheezing (Adult), ED COPD Flare, ED Low Blood Pressure, All Causes Prescriptions: New azithromycin [Zithromax Z-Zev] 250 mg tablet 250 mg PO DAILY 4 Days Qty: 4 0RF Rx Instructions: start on day 2 of therapy prednisone 20 mg tablet 40 mg PO DAILY 5 Days Qty: 10 0RF No Action sertraline 100 mg tablet 100 mg PO DAILY Entresto 49-51 mg tablet 1 tab PO BID Qty: 60 11RF carvedilol 6.25 mg tablet 6.25 mg PO BID Qty: 60 11RF Rx Instructions: administer with food (meal or snack) Stiolto Respimat 2.5-2.5 mcg/actuation mist 2 inh inhalation DAILY Qty: 4 11RF furosemide 40 mg tablet 40 mg PO .COMPLEX Qty: 180 3RF Rx Instructions: 40 mg orally daily: may need to take twice a day as needed for swelling, weight gain, or shortness of breath; clopidogrel 75 mg tablet 75 mg PO DAILY Qty: 90 3RF atorvastatin 80 mg tablet 80 mg PO QHS Qty: 90 3RF Farxiga 10 mg tablet 10 mg PO DAILY Qty: 30 6RF Primary Care Provider: Ramiro Redding Referrals: Ramiro Redding DO [Primary Care Provider] - 3-5 Days Activity Restrictions/Additional Instructions: Plenty of fluids and rest. Only take the 1 blood pressure medication once a day. Your pressure should be running at least around 100. Prednisone 40 mg a day for the next 5 days starting tomorrow. Zithromax 1 pill/day for the next 4 days starting tomorrow. Follow-up with your doctor to ensure you are improving return to the emergency department if you are feeling worse. With your blood pressures running low be very careful on steps and I would not drive. Disposition Disposition: Home, Self Care
[2022-08-01] MEDS: 0.9% Normal Saline 1,000 ML 999 ML IV (06:16)
[2022-08-01 06:18] VITALS: O2SAT 91
[2022-08-01 06:20] VITALS: BP 71/57; PULSE 78; RESP 15; O2SAT 92
[2022-08-01 06:23] LABS: Absolute Lymphocyte Count 1.16 X10^3/uL (0.83-4.51); Absolute Neutrophil Count 10.1 X10^3/uL (2.0-7.7); Basophil# 0.04 X10^3/uL; Basophil% 0.3 % (0-1); Eosinophil# 0.14 X10^3/uL; Eosinophils% 1.1 % (0-5); Hematocrit 45.6 % (40-54); Hemoglobin 14.8 g/dL (13.0-16.5); Lymphocyte # 1.16 X10^3/ul (0.83-4.51); Lymphocyte % 9.2 % (19-41); Mean Corp Hgb Conc 32.5 g/dL (32-36); Mean Corpuscular Hgb 30.6 pg (27.0-32.0); Mean Corpuscular Volume 94.2 fL (80-94); Mean Platelet Vol. 9.8 fl (6.2-12.0); Monocyte% 9.5 % (0-10); NRBC Flagged by Analyzer 0 % (0-5); Neutrophil # 10.05 X10^3/uL (2.7-7.7); Neutrophil % 79.5 % (47-70); Platelet Count 228 K/mm3 (150-450); RBC Distribution Width CV 13.2 % (11.6-14.6); Red Blood Count 4.84 M/mm3 (4.6-6.2); White Blood Count 12.6 K/mm3 (4.4-11.0)
[2022-08-01 06:38] LABS: International Normalized Ratio 1.1; Prothrombin Time (Protime)PT. 13.7 SECONDS (11.7-14.9)
[2022-08-01 06:45] LABS: Lactic Acid 1.3 mmol/L (0.4-1.9)
[2022-08-01 06:46] LABS: ALB/GLOB Ratio 0.8 RATIO (0.9-2.4); AST(SGOT) 11 U/L (15-37); Alanine Aminotransfer ALT/SGPT 20 U/L (16-61); Albumin, Serum 3.4 g/dL (3.2-5.0); Alkaline Phosphatase 71 U/L (45-117); Anion Gap 7 (5-15); BUN 23 mg/dL (7-18); BUN/Creat Ratio 16.4 RATIO (10-20); Calcium,Total 9.3 mg/dL (8.5-10.1); Chloride 105 mmol/L (98-107); EST Glomerular Filtration Rate 54 mL/min (>60); Est Glom Filt Rate - Afr Amer 66 mL/min (>60); Estimated Creatinine Clearance 57.52 ml/min; Globulin 4.3 g/dL (2.2-4.2); Glucose 106 mg/dL (74-106); Potassium 3.4 mmol/L (3.5-5.1); Protein, Total 7.7 g/dL (6.4-8.2); Sodium Level 137 mmol/L (136-145)
[2022-08-01 06:55] VITALS: BP 76/55; PULSE 70; RESP 17; TEMP 36.6; O2SAT 94
[2022-08-01] MEDS: predniSONE 20 MG Tablet 40 MG PO (07:34)
[2022-08-01] MEDS: Azithromycin 250 MG Tablet 500 MG PO (07:34)
[2022-08-01 07:39] VITALS: BP 88/53; PULSE 72; RESP 18; TEMP 36.4; O2SAT 94
== END 2022-08-01 07:40 | disposition home or self-care (01) ==
PROVIDERS: Emergency Provider Emergency Medicine; Visit Provider Emergency Medicine
DX: I95.89 Other hypotension (principal); J44.1 Chronic obstructive pulmonary disease with (acute) exacerbation; I11.0 Hypertensive heart disease with heart failure; I50.20 Unspecified systolic (congestive) heart failure; E78.5 Hyperlipidemia, unspecified; E86.0 Dehydration; I25.10 Atherosclerotic heart disease of native coronary artery without angina pectoris; Z87.891 Personal history of nicotine dependence; R06.2 Wheezing; Z79.52 Long term (current) use of systemic steroids
CPT/HCPCS: 71045; 80053; 83605; 85025; 85610; 85730; 87040; 87070; 87077; 87086; 87088; 87205; 87428; 93005; 99285; J7030; A4216

== ENCOUNTER → 2022-10-13 | Outpatient (CLI) | payer OTHER, MEDICAID, SELFPAY ==
--- NOTE | 2022-10-13 12:57 | ECHOD_ITS ---
Version 2 Reason For Study: CHF Procedure This was a 2D Doppler, Color Flow transthoracic echocardiogram. Myocardial strain analysis was performed in this exam to aid in the assessment of cardiac function. Exam performed in department. Left Ventricle Normal LV size. Mild concentric left ventricular hypertrophy. The estimated ejection fraction is 20 %. Stage 1 diastolic dysfunction. There is severe global hypokinesis of the left ventricle. Right Ventricle Normal RV size. ICD or pacer leads identified within the right ventricle. Very mobile pacemaker lead noted within right ventricle traversing the tricuspid valve. Normal systolic function. Atria Normal left atrium. Normal right atrium. Mitral Valve Normal mitral valve. Mild (1+) eccentric mitral valve insufficiency. Tricuspid Valve Normal tricuspid valve. Mild tricuspid valve insufficiency. Pulmonary artery systolic pressure is 23 mmHg. Aortic Valve Normal aortic valve. Pulmonic Valve Normal pulmonic valve. Great Vessels Normal aortic root. The pulmonary artery is normal size. Normal inferior vena cava. Pericardium/Pleural No pericardial effusion. MMode/2D Measurements & Calculations LVIDd: 5.9 cm IVSd: 1.2 cm Ao root diam: 3.8 cm LVIDs: 5.2 cm LVPWd: 1.2 cm FS: 12.0 % LAV(MOD-bp): 46.4 ml LA A4 area: 15.9 cm2 LA dimension(2D): 3.6 cm LAV(MOD-bp) Indexed: 22.5 ml/m2 LAV(MOD-sp2): 51.7 ml LAV(MOD-sp4): 38.6 ml RA A4 area: 13.0 cm2 Time Measurements MV dec time: 0.21 sec Doppler Measurements & Calculations MV E max casey: 30.0 cm/sec Lat Peak E' Casey: 4.0 cm/sec Med Peak E' Casey: 4.3 cm/sec MV A max casey: 61.3 cm/sec E/E' lat: 7.6 E/E' med: 7.0 MV E/A: 0.49 MV dec slope: 140.4 cm/sec2 Ao V2 max: 109.8 cm/sec LV V1 max: 71.4 cm/sec Ao max P.8 mmHg LV V1 max P.0 mmHg Ao V2 mean: 79.1 cm/sec LV V1 mean P.1 mmHg Ao mean P.8 mmHg LV V1 mean: 48.8 cm/sec Ao V2 VTI: 20.4 cm LV V1 VTI: 11.9 cm AV (velocity ratio): 0.58 PA V2 max: 49.1 cm/sec TR max casey: 222.4 cm/sec TR max P.8 mmHg ECHO/Echo Complete Interpretation Summary Normal RV size. Normal LV size. Mild concentric left ventricular hypertrophy. The estimated ejection fraction is 20 %. There is severe global hypokinesis of the left ventricle. Stage 1 diastolic dysfunction. Pulmonary artery systolic pressure is 23 mmHg. Very mobile pacemaker lead noted within right ventricle traversing the tricuspi d valve The global longitudinal strain = -8.3% (abnormal). The global longitudinal stra in is severely abnormal. Compared to previous study, the left ventricular systolic function is the same.. Ordering Physician: Jessica Murray Referring Physician: Surendra Redding Performed By: Courtney Arriaza RDCS, RVT
== END | disposition home or self-care (01) ==
LOC: CVS 12:56
PROVIDERS: Visit Provider Physician Assistant Medical
DX: I50.20 Unspecified systolic (congestive) heart failure (principal)
CPT/HCPCS: 93306

== ENCOUNTER → 2022-12-09 | Outpatient (CLI) | payer OTHER, MEDICAID, SELFPAY ==
--- NOTE | 2022-12-09 09:48 | CT_ITS ---
EXAM: CT CHEST, LUNG CANCER SCREENING WITHOUT INTRAVENOUS CONTRAST CLINICAL INDICATION: smoker and gt; 40 pack years TECHNIQUE: Helically acquired images were obtained of the chest without intravenous contrast using low dose (LDCT) lung cancer screening protocol. This CT exam was performed using one or more of the following dose reduction techniques: automated exposure control, adjustment of the mA and/or kV according to patient size, and/or use of iterative reconstruction technique. COMPARISON: 12/06/2021 FINDINGS: LUNGS AND PLEURAL SPACES: There are emphysematous changes within the upper lobes. Previously described nodules within the right upper and lower lobes are not present on today''s examination. There is minimal scarring within the lingula. There is a 5 mm noncalcified nodule within the left upper lobe seen on series 2 image 157. No pleural effusion or thickening. No pneumothorax. HEART: Unremarkable. Heart size is normal. No pericardial effusion. No significant coronary artery calcifications. MEDIASTINUM: Unremarkable. No mediastinal or hilar adenopathy. Esophagus is unremarkable. No hiatal hernia. THYROID: Unremarkable. No thyroid lesions. BONES/JOINTS: Unremarkable. No suspicious lytic or blastic abnormality. VASCULATURE: Unremarkable. Thoracic aorta is non-dilated. LYMPH NODES: Unremarkable. No enlarged lymph nodes. TUBES, LINES AND DEVICES: Left-sided pacemaker is in good position. CT/Low Dose CT Lung Screening IMPRESSION: Noncalcified nodule in the left upper lobe. Previously seen nodules in the right upper and lower lobes are not seen on today''s exam. There are emphysematous changes in both lungs. Lung-RADS score: 2 - Benign Appearance or Behavior. Recommend continued annual screening with low-dose CT (LDCT) in 12 months. Electronically Signed: Jason Johnson MD at 18:21 EDT ,
== END | disposition home or self-care (01) ==
LOC: CT 09:48
PROVIDERS: Referring Provider Nurse Practitioner Acute Care; Visit Provider Nurse Practitioner Acute Care
DX: Z12.2 Encounter for screening for malignant neoplasm of respiratory organs (principal); F17.210 Nicotine dependence, cigarettes, uncomplicated
CPT/HCPCS: 71271

== ENCOUNTER → 2023-05-10 | Outpatient (CLI) | payer OTHER, SELFPAY ==
[2023-05-10 08:53] VITALS: PULSE 101; PULSE 106; PULSE 111; PULSE 116; PULSE 96; PULSE 98; O2SAT 87; O2SAT 94; O2SAT 95; O2SAT 96; O2SAT 97
--- NOTE | 2023-05-10 08:59 | CPS ---
pt arrived on room air. Sats 95% at 1 min of walk sats dropped to 87% and i placed the pt on 2L oxygen. He did the remainder of test on 2l and tolerated it fine and sats stayed above 94%
--- NOTE | 2023-05-10 12:22 | PCM.PSN.6M ---
PSN 6 Minute Walk Test 6 Minute Walk Test 6 Minute Walk Test: 6 Minute Walk Test PSN:6-Minute Walk Test Start: 05/10/23 08:50 Freq: Status: Active Protocol: [id number].6MINW Document 05/10/23 08:53 EW (Rec: 05/10/23 09:00 EW Desktop) 6 Minute Walk Test Date Performed 05/10/23 Time Performed 08:30 Height 5 ft 9 in Weight: 190 lb Weight in Pounds 190.[address]: Merle Parada [employer] ADMINISTRATOR Assistive device used: None Pre-test Oxygen Delivery Method Room Air Pulse Ox 95 Pulse Rate (60-100) 98 Dyspnea Purvi Scale (0-10) 2 Exertion Purvi Scale (6-20) 11 1st minute Oxygen Delivery Method Room Air Pulse Ox 87 Pulse Rate (60-100) 96 2nd minute Oxygen Flow Rate (L/min) 2 Oxygen Delivery Method Nasal Cannula Pulse Ox 95 Pulse Rate (60-100) 106 H 3rd minute Oxygen Flow Rate (L/min) 2 Oxygen Delivery Method Nasal Cannula Pulse Ox 96 Pulse Rate (60-100) 116 H 4th minute Oxygen Flow Rate (L/min) 2 Oxygen Delivery Method Nasal Cannula Pulse Ox 94 Pulse Rate (60-100) 111 H 5th minute Oxygen Flow Rate (L/min) 2 Oxygen Delivery Method Nasal Cannula Pulse Ox 97 Pulse Rate (60-100) 111 H 6th minute Oxygen Flow Rate (L/min) 2 Oxygen Delivery Method Nasal Cannula Pulse Ox 95 Pulse Rate (60-100) 106 H Post-test Oxygen Flow Rate (L/min) 2 Oxygen Delivery Method Nasal Cannula Pulse Ox 97 Pulse Rate (60-100) 101 H Dyspnea Purvi Scale (0-10) 3 Exertion Purvi Scale (6-20) 12 Full Laps Walked 18 Partial Lap, Number of Tiles Walked 0 Total Distance Walked (ft) 1062 05/10/23 08:59 Cardiopulmonary Services by Cierra Flores pt arrived on room air. Sats 95% at 1 min of walk sats dropped to 87% and i placed the pt on 2L oxygen. He did the remainder of test on 2l and tolerated it fine and sats stayed above 94% Initialized on 05/10/23 08:59 - END OF NOTE Interpretation Interpretation: The patient ambulated 1062 feet over the course of 6 minutes beginning on room air without assistive devices. Pretesting oxygen saturation was noted to be 95% on room air. With ambulation, the maxim oxygen saturation was 87%. 2 L/min of supplemental oxygen was applied, and the patient was able to complete the remainder of the test while maintaining appropriate saturations. Recommendations Recommendations: 2 L/min of supplemental oxygen should be utilized with exertion.
== END | disposition home or self-care (01) ==
PROVIDERS: Referring Provider Nurse Practitioner Acute Care; Visit Provider Nurse Practitioner Acute Care
DX: J44.1 Chronic obstructive pulmonary disease with (acute) exacerbation (principal)
CPT/HCPCS: 94618

== ENCOUNTER → 2024-04-07 | Outpatient (CLI) | payer OTHER, SELFPAY ==
--- NOTE | 2024-04-07 10:10 | RAD_ITS ---
STUDY: X-RAY CHEST REASON FOR EXAM: Male, 63 years old. cough TECHNIQUE: AP and lateral views of the chest. COMPARISON: August 01, 2022 FINDINGS: Left chest cardiac device and leads are stable. Chronic hyperinflation and cystic emphysematous changes. No visualized new opacity is seen. There is no demonstrated pleural abnormality. Normal size heart. Normal mediastinum and kavita. Normal visualized pulmonary arteries. There is atherosclerotic calcification of the aortic arch with tortuosity. There are diffuse degenerative changes of the visualized thoracic spine. Normal visualized ribs, clavicles, and shoulders. There is no demonstrated abnormality of the visualized soft tissue structures of the upper abdomen. RAD/Chest PA and Lateral IMPRESSION: COPD/emphysema Electronically Signed: Enoc Hutchison MD at 11:03 EDT ,
== END | disposition home or self-care (01) ==
LOC: MTRAD 10:06
PROVIDERS: Referring Provider Physician Assistant; Visit Provider Physician Assistant
DX: R05.9 Cough, unspecified (principal)
CPT/HCPCS: 71046

== ENCOUNTER 2024-11-25 00:56 | Emergency (ER) | payer MEDICARE, SELFPAY ==
[2024-11-25 00:57] VITALS: PULSE 148
[2024-11-25 00:58] VITALS: BP 113/77; PULSE 149; RESP 18; TEMP 36.3; O2SAT 97; BMI 23.6
--- NOTE | 2024-11-25 01:14 | RAD_ITS ---
PROCEDURE: CHEST 1 VIEW (PORTABLE) 11/25/2024 REASON FOR EXAM: PALPITATIONS TECHNIQUE: Frontal view of the chest. COMPARISON: 04/07/2024 FINDINGS: The lungs are clear. Pulmonary vascularity appears within limits. No evidence of pleural effusion. AICD again noted. Size of the cardiac silhouette is not significantly changed. RAD/Chest 1 View (Portable) IMPRESSION: No evidence of acute disease. Reading Location: [id number]
[2024-11-25] MEDS: 0.9% Normal Saline (500mL Bag) 500 ML 999 ML IV (01:20)
[2024-11-25] MEDS: dilTIAZem 25 MG/5 ML Vial 15 MG IV BOLUS (01:20)
[2024-11-25 01:22] LABS: Absolute Lymphocyte Count 3.77 X10^3/uL (0.83-4.51); Basophil# 0.09 X10^3/uL; Basophil% 0.6 % (0-1); Eosinophil# 0.25 X10^3/uL; Eosinophils% 1.8 % (0-5); Hematocrit 48.2 % (40-54); Hemoglobin 15.8 g/dL (13.0-16.5); Lymphocyte # 3.77 X10^3/ul (0.83-4.51); Lymphocyte % 26.5 % (19-41); Mean Corp Hgb Conc 32.8 g/dL (32-36); Mean Corpuscular Hgb 31.5 pg (27.0-32.0); Mean Platelet Vol. 9.5 fl (6.2-12.0); Monocyte# 1.09 X10^3/uL; Monocyte% 7.7 % (0-10); NRBC Flagged by Analyzer 0 % (0-5); Neutrophil # 8.96 X10^3/uL (2.7-7.7); Neutrophil % 62.9 % (47-70); Platelet Count 223 K/mm3 (150-450); RBC Distribution Width CV 14.4 % (11.6-14.6); RBC Distribution Width SD 50.6 fl (35.1-43.9); Red Blood Count 5.02 M/mm3 (4.6-6.2); White Blood Count 14.2 K/mm3 (4.4-11.0)
[2024-11-25 01:32] LABS: International Normalized Ratio 0.9; Prothrombin Time (Protime)PT. 12.4 SECONDS (11.7-14.9)
[2024-11-25 01:33] LABS: Partial Thromboplast Time 26.1 Seconds (24.1-36.2)
[2024-11-25 01:53] LABS: Magnesium 2.2 mg/dL (1.5-2.2)
[2024-11-25] MEDS: Metoprolol Tartrate 25 MG Tablet PO (01:56)
[2024-11-25 01:57] VITALS: BP 112/78; PULSE 103; RESP 19; O2SAT 97
[2024-11-25 01:59] LABS: BUN 27 mg/dL (4-19); BUN/Creat Ratio 15.1 RATIO (10-20); Calcium,Total 8.9 mg/dL (7.6-11.0); Carbon Dioxide 23.5 mmol/L (21.0-32.0); Creatinine, Serum 1.78 mg/dL (0.70-1.20); EST Glomerular Filtration Rate 42 (>60); Estimated Creatinine Clearance 44.07 ml/min (50-250); Glucose 119 mg/dL (70-99)
[2024-11-25 02:07] LABS: Anion Gap 13 (5-15); Chloride 107 mmol/L (98-108); Potassium 3.7 mmol/L (3.3-5.1); Sodium Level 143 mmol/L (133-145)
--- NOTE | 2024-11-25 02:39 | EX.ED.DYSGE1 ---
HPI History of Present Illness Chief Complaint: Palpitations Informant: patient and EMS Narrative Narrative: Patient is a 64-year-old male with past medical history of COPD hypertension hyperlipidemia and coronary artery disease. He also has a history of paroxysmal atrial fibrillation and is status post pacemaker placement. He states that this evening he just felt fatigued and unwell. He states that he tried to lay down but symptoms persisted and he took his heart rate as he states he does this multiple times a day secondary to his history of heart disease and it was elevated at approximately 170. He reports his baseline heart rate is around 100. With the elevated rate and his symptoms he was concerned and called EMS to be brought in for evaluation. Patient states that he is on a baby aspirin and Zoloft but denies any other medications. He states there has been no excessive caffeine use or illicit drug use either. [facility] Medical History Acute bronchitis, unspecified COPD with emphysema Presence of combination internal cardiac defibrillator (ICD) and pacemaker History of CVA (cerebrovascular accident) (01/28/22) Occipital stroke Secondary pulmonary arterial hypertension HFrEF (heart failure with reduced ejection fraction) Non-ischemic cardiomyopathy Nonobstructive atherosclerosis of coronary artery Depression with anxiety Hyperlipidemia Essential hypertension History of alcohol abuse History of panic attacks Tobacco abuse Wheezing Hypersomnia Panic attack PAD (peripheral artery disease) Pneumonia Scoliosis COPD (chronic obstructive pulmonary disease) Home Medications ?Medication ?Instructions ?Recorded ?Last Taken ?Type sertraline 100 mg tablet 100 mg PO DAILY 02/05/22 Unknown History atorvastatin 80 mg tablet 80 mg PO QHS #90 tabs 06/07/22 Unknown Rx azithromycin 250 mg tablet See Rx Instructions PO .COMPLEX #6 12/15/22 Unknown Rx tabs apixaban 5 mg tablet (Eliquis) 5 mg PO BID 30 days #60 tabs 11/25/24 Unknown Rx aspirin 81 mg tablet,delayed 81 mg PO DAILY 11/25/24 Unknown History release (Adult Aspirin Regimen) metoprolol tartrate 25 mg tablet 25 mg PO BID 30 days #60 tabs 11/25/24 Unknown Rx Allergy/AdvReac Type Severity Reaction Status Date / Time No Known Allergies Allergy Verified 11/25/24 00:57 Family History Father Emphysema of lung CVA (cerebral vascular accident) Alcohol abuse by father Drug use Brain cancer Mother Heart disease Myocardial infarction Uncle Alcohol abuse Drug use Cancer Grandfather Prostate cancer Aunt Cancer Surgical History Presence of biventricular implantable cardioverter-defibrillator (ICD) (05/16/22) History of colonoscopy (~09/14/15) History of colonoscopy (~07/30/02) History of carpal tunnel surgery of right wrist (~07/30/03) History of left heart catheterization (01/17/16) Social History household members: spouse Smoking Status: Light Smoker (<10/day) Tobacco: How many years used: 40 Electronic Cigarette Use: not used second hand exposure: No alcohol intake: former substance use type: does not use caffeine: Yes Type: carbonated beverages Number of servings: 3 what type of physical activity do you participate in: walking frequency: 3-4 times per week ronnie/pentecostalism: Buddhist seatbelt use: sometimes ROS ROS ED Constitutional Constitutional ED: Reports sweats and other Details: Positive fatigue ; Denies chills or fever(s) Eyes Eyes: Denies blurry vision or change in vision ENT ENT ED: Denies sore throat Cardiovascular Cardiovascular: Reports palpitations and racing heartbeat; Denies chest pain Respiratory/Chest Respiratory/Chest: Denies cough or dyspnea Gastrointestinal Gastrointestinal: Denies abdominal pain, diarrhea, nausea or vomiting Genitourinary Genitourinary ED: Denies dysuria Musculoskeletal Musculoskeletal: Denies back pain Integumentary Denies rash Neurologic Neurologic: Denies headache(s) Hematologic/Lymphatic Hematologic/Lymphatic: Denies easy bleeding or easy bruising EXAM Physical Exam Const Vital Signs: 11/25/24 00:57 11/25/24 00:58 11/25/24 01:23 Temperature 97.4 F L Temperature Source Temporal Pulse Rate 148 H 149 H Respiratory Rate 18 Respiratory Effort Normal Blood Pressure 113/77 Blood Pressure Mean 89 Pulse Ox 97 Oxygen Delivery Method 11/25/24 01:57 11/25/24 02:57 Temperature Temperature Source Pulse Rate 103 H 100 Respiratory Rate 19 H 22 H Respiratory Effort Blood Pressure 112/78 94/73 Blood Pressure Mean 89 80 Pulse Ox 97 95 Oxygen Delivery Method Room Air Room Air Positive well nourished and well developed General Appearance ED: well developed; Negative for pallor HEENT HEENT Narrative: Normocephalic atraumatic Eyes PERRL and EOMs intact bilaterally General Eye ED: Negative for pale conjunctiva or scleral icterus Neck supple and no JVD Neck Narrative: No nuchal rigidity or meningeal signs Chest Wall palpation of chest normal Resp normal respiratory effort Resp Narrative: Breath sounds are diminished throughout with diffuse expiratory wheeze consistent with history of COPD but no signs of respiratory distress Cardio Rate: other Other Details: Irregularly irregular rhythm with tachycardic rate consistent with history of atrial fibrillation Radial and carotid pulses are equal and symmetric GI normal to inspection, nondistended, normoactive bowel sounds, non-tender, non-distended and no masses GI Narrative: No voluntary guarding rigidity or pulsatile mass Auscultation: normoactive bowel sounds Palpation: soft Back/Spine no CVA tenderness Extremity normal to inspection Extremity Narrative: No asymmetric edema no pitting edema negative Homans' sign bilaterally Neuro oriented x3, CN's II-XII intact bilaterally and no sensory deficits noted Sensorium / Orientation: alert Motor Exam: strength 5/5 throughout Psych mental status grossly normal Skin no rashes or lesions noted General Skin Exam: Negative for jaundice or pallor MDM MDM MDM Narrative Medical decision making narrative: Patient arrived to the ER awake alert and oriented in no acute distress despite a heart rate of approximately 150. EKG confirmed atrial fibrillation with RVR but no signs of acute FL. Chart review reveals he does have a history of this but has not been in it since the end of 2021. He denies any excessive stimulant use or illicit drug use to cause a an exacerbation. In order to check for acute blood loss anemia acute kidney injury or electrolyte abnormality as a potential cause of a basic exam was performed. Chest x-ray revealed no acute lung pathology such as pneumonia which could have exacerbated his A-fib. White count is elevated at 14.2 but he does not have any physical exam findings concerning for infection and his abdomen is soft and nonsurgical so I do not feel the need for a CT scan of his abdomen. As patient reports he has only been tachycardic for a few hours concern for a PE is low and as patient does not have chest pain or hypoxia I do not feel there is need for a CTA. Blood work revealed no clinically significant electrolyte abnormality or acute kidney injury as a potential cause either. The patient was treated with 15 mg of IV Cardizem and his heart rate reduced to approximately 100 and appeared sinus. He was given oral metoprolol to help prevent exacerbation and 1 dose of IV digoxin was added. He was watched in the ER and remained in paced rhythm near his baseline heart rate of 100. He does not have chest pain or shortness of breath. Blood pressure has remained stable. As he has a known history of A-fib I do not feel there is need for admission especially as vitals are stable and heart rate and rhythm have improved. I will start him on Eliquis for DVT/PE prophylaxis as well as oral metoprolol to help control any further exacerbations of his heart rate. He can follow-up with his medical representative as an outpatient to discuss continuing these medications but as overall workup is negative and he had improvement of his abnormal heart rhythm he is otherwise safe for discharge. History & Record Review Discussion w/independent historian: EMS personnel and Patient Lab Data Attestation: I reviewed the patient's lab results. Labs: Laboratory Results - last 24 hr 11/25/24 01:05 WBC 14.2 H RBC 5.02 Hgb 15.8 Hct 48.2 MCV 96.0 H MCH 31.5 MCHC 32.8 RDW Std Deviation 50.6 H RDW Coeff of Jefry 14.4 Plt Count 223 MPV 9.5 Immature Gran % (Auto) 0.500 Neut % (Auto) 62.9 Lymph % (Auto) 26.5 [place] % (Auto) 7.7 Eos % (Auto) 1.8 Baso % (Auto) 0.6 Absolute Neuts (auto) 9.0 H Absolute Lymphs (auto) 3.77 Nucleated RBC % 0 PT 12.4 INR 0.9 APTT 26.1 Sodium 143 Potassium 3.7 Chloride 107 Carbon Dioxide 23.5 Anion Gap 13 BUN 27 H Creatinine 1.78 H Estim Creat Clear Calc 44.07 L Est GFR (MDRD) Non-Af 42 L BUN/Creatinine Ratio 15.1 Glucose 119 H Calcium 8.9 Magnesium 2.2 TSH 2.170 Radiography Diagnostic Testing: Clinical Impression(s) from Imaging Studies Chest X-Ray 11/25/24 01:14 IMPRESSION: No evidence of acute disease. Reading Location: [facility] Chest x-ray as interpreted by the emergency medicine physician reveals no acute infiltrate pneumothorax or pleural effusion Discharge Plan Triage Chief Complaint: Palpitations ED Provider: Ryan Stapleton Dx/Rx/DC Orders Clinical Impression: Atrial fibrillation with rapid ventricular response, Essential hypertension, Hyperlipidemia, Renal insufficiency, COPD (chronic obstructive pulmonary disease), Non-ischemic cardiomyopathy Instructions: ED AFIB Prescriptions: New Eliquis 5 mg tablet 5 mg PO BID 30 Days Qty: 60 0RF metoprolol tartrate 25 mg tablet 25 mg PO BID 30 Days Qty: 60 0RF No Action sertraline 100 mg tablet 100 mg PO DAILY azithromycin 250 mg tablet See Rx Instructions PO .COMPLEX Qty: 6 0RF Rx Instructions: take 500 mg today (day 1), then 250 mg for 4 days (days 2-5) PO aspirin [Adult Aspirin Regimen] 81 mg tablet,delayed release (DR/EC) 81 mg PO DAILY atorvastatin 80 mg tablet 80 mg PO QHS Qty: 90 3RF Primary Care Provider: Ramiro Redding Referrals: Ramiro Redding DO [Primary Care Provider] - Activity Restrictions/Additional Instructions: Please contact your medical representative office today. Inform them of your bouts of atrial fibrillation. Asked the medical representative if he would like you to continue the metoprolol and Eliquis that was prescribed from the ER. Please continue your other medications as directed and return to the ER should you have any further concerns or worsening of symptoms. Print Language: Kyrgyz Disposition Disposition: Home, Self Care
[2024-11-25] MEDS: Digoxin 250 MCG/ML Ampul IV (02:53)
[2024-11-25 02:57] VITALS: BP 94/73; PULSE 100; RESP 22; O2SAT 95
--- NOTE | 2024-11-25 03:20 | EKG12_ITS ---
Test Reason : AF Blood Pressure : */* mmHG Vent. Rate : 149 BPM Atrial Rate : * BPM P-R Int : * ms QRS Dur : 136 ms QT Int : 270 ms P-R-T Axes : * 81 253 degrees QTcB Int : 425 ms Critical Test Result: High HR Atrial fibrillation with rapid ventricular response with occasional ventricular- paced complexes Non-specific intra-ventricular conduction block Minimal voltage criteria for LVH, may be normal variant ( Christo product ) T wave abnormality, consider inferior ischemia T wave abnormality, consider anterolateral ischemia Abnormal ECG Confirmed by VISH IBARRA, CLARITA ([id number]), newspaper editor BOB LANDEROS ([id number]) on 11/26/2024 1:24:21 PM Referred By: Confirmed By: CLARITA WAHL MD
[2024-11-25 03:39] VITALS: BP 94/73; PULSE 93; RESP 19; TEMP 36.9; O2SAT 96
[2024-11-25] MEDS: APIXABAN 5 MG TABLET PO (03:43)
== END 2024-11-25 03:45 | disposition home or self-care (01) ==
PROVIDERS: Emergency Provider Emergency Medicine; Visit Provider Emergency Medicine
DX: I48.0 Paroxysmal atrial fibrillation (principal); J44.9 Chronic obstructive pulmonary disease, unspecified; I42.8 Other cardiomyopathies; N28.9 Disorder of kidney and ureter, unspecified; I10 Essential (primary) hypertension; E78.5 Hyperlipidemia, unspecified; F41.8 Other specified anxiety disorders; I25.10 Atherosclerotic heart disease of native coronary artery without angina pectoris; F17.200 Nicotine dependence, unspecified, uncomplicated; Z86.73 Personal history of transient ischemic attack (TIA), and cerebral infarction without residual deficits; Z79.01 Long term (current) use of anticoagulants; Z79.82 Long term (current) use of aspirin; Z95.810 Presence of automatic (implantable) cardiac defibrillator; Z79.899 Other long term (current) drug therapy
CPT/HCPCS: 71045; 80048; 83735; 84443; 85025; 85610; 85730; 93005; 96361; 96374; 96375; 99283; A4216